=== PATIENT | male | born 1970 | race Caucasian/White ===

== ENCOUNTER 2021-06-27 11:37 | Inpatient (IN) | payer MEDICARE, MEDICAID, SELFPAY ==
--- NOTE | ~2021-06-27 | CT_ITS ---
EXAMINATION: CT abdomen pelvis w con DATE: 06/27/2021 13:29 INDICATION: Nausea and vomiting. Leukocytosis. Diarrhea. COVID-19 positive. TECHNIQUE: Computed tomography (CT) of the abdomen and pelvis was performed without intravenous contr ast. Automated exposure control and iterative reconstruction technique were employed. The dose-length product was 538.33 mGy-cm. COMPARISON: Chest radiograph 06/27/2021 FINDINGS: The visualized portions of the lung bases demonstrate patchy airspace and groundglass opaci ties in the lower lobes, right middle lobe, and lingula. No pleural effusion. The heart size is pedrito l. No pericardial effusion. There is mild bilateral gynecomastia. The liver demonstrates focal steato sis adjacent to ligamentum teres. There is a 1.7 cm low-attenuation mass in the spleen. The gallbladd er is normal in size. There is an 8 mm polyp in the gallbladder. The pancreas, adrenal glands, and ki dneys are normal. The bladder is distended. The prostate is mildly enlarged. There are no dilated loo ps of bowel. The appendix is normal. There are no pathologically enlarged lymph nodes. There is no fr ee intraperitoneal fluid. There is a 9 mm nonaggressive lytic lesion in left ilium, likely benign. Th ere is mild thoracic spondylosis. There is a benign bone island in T8 vertebral body. IMPRESSION: 1. Diffuse lung disease, consistent with COVID-19 pneumonia. 2. 1.7 cm splenic mass, which may be benign or less likely malignant. Abdomen MRI without and with co ntrast is recommended in 6 months. 3. 8 mm gallbladder polyp. The differential diagnosis includes benign polyp, adenoma, and less likely small cancer. Ultrasound is recommended in one year. Reviewed, dictated and finalized at location B. [facility] IMPRESSION: 1. Diffuse lung disease, consistent with COVID-19 pneumonia. 2. 1.7 cm splenic mass, which may be benign or less likely malignant. Abdomen M RI without and with contrast is recommended in 6 months. 3. 8 mm gallbladder polyp. The differential diagnosis includes benign polyp, ad enoma, and less likely small cancer. Ultrasound is recommended in one year.
--- NOTE | ~2021-06-27 | XR_ITS ---
EXAMINATION: XR chest 1V portable EXAM DATE: 06/27/2021 13:14 INDICATION: COVID +, leukocytosis . TECHNIQUE: Portable AP frontal chest x-ray was obtained. There is no prior study for comparison. FINDINGS: There is subsegmental somewhat confluent right upper lobe airspace disease, other less well -defined bilateral airspace disease. Could be viral and/or bacterial pneumonia. There is no pneumotho rax suspected. There are no pleural effusions. Cardiomediastinal silhouette is normal. IMPRESSION: Bilateral ill-defined pneumonia with right upper lobe subsegmental confluence. Reviewed, dictated and finalized at location A. 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
[2021-06-27 11:42] VITALS: BP 109/72; PULSE 103; RESP 20; TEMP 37.1; O2SAT 95
[2021-06-27 11:58] LABS: Basophils Absolute Auto 0.1 K/mm3 (0.0-0.1); Basophils Percent Auto 0.5 % (0.2-1.2); Eosinophils Absolute Auto 0.1 K/mm3 (0-0.3); Eosinophils Percent Auto 0.5 % (0-4.4); Hemoglobin 15.9 g/dL (14.0-18.0); Immature Granulocyte Absolute 0.33 K/mm3 (0.00-0.031); Immature Granulocyte Percent A 1.9 % (0-0.5); Lymphocytes Absolute Auto 0.91 K/mm3 (0.9-3.2); Lymphocytes Percent Auto 5.3 % (18.3-44.2); Mean Corpuscular HGB Conc 34.6 g/dl (32-36); Mean Corpuscular Hemoglobin 28.8 pg (26-34); Mean Corpuscular Volume 83.2 fl (80-100); Mean Platelet Volume 10.3 fl (7.4-10.4); Monocytes Percent Auto 5.9 % (2.6-8.5); Neutrophils Absolute Auto 14.7 K/mm3 (1.3-6.7); Neutrophils Percent Auto 85.9 % (45.5-73.1); Platelet Count Result 442 k/mm3 (150-375); Red Blood Count 5.53 M/mm3 (4.6-6.20); Red Cell Distribution Width 12.2 % (11.5-14.5); White Blood Count 17.1 K/mm3 (4.5-10.0)
[2021-06-27 12:11] LABS: Alanine Aminotransferase 23 U/L (4-50); Albumin Level 3.6 g/dL (3.5-5.1); Alkaline Phosphatase 78 U/L (38-126); Anion Gap 7 mmol/L (8-16); Aspartate Amino Transferase 27 U/L (17-59); Blood Urea Nitrogen 24 mg/dL (9-20); Calcium 8.6 mg/dL (8.4-10.2); Carbon Dioxide 36 mmol/L (22-30); Chloride 90 mmol/L (98-107); Estimated CRCL calculation 110 ml/min; Estimated Glomerular Filt Rate > 60; Glucose 246 mg/dL (65-110); Lipase 111 U/L (23-300); Potassium 3.7 mmol/L (3.4-5.0); Sodium 133 mmol/L (137-145)
--- NOTE | 2021-06-27 12:54 | ED.NAVMDI ---
HPI - Nausea/Vomiting/Diarrhea General Chief complaint: Nausea/Vomiting/Diarrhea <Hilary Manrique PA-C - Last Filed: 06/27/21 16:05> Stated complaint: N/V/D COVID + <Hilary Manrique PA-C - Last Filed: 06/27/21 16:05> Time Seen by Provider: 06/27/21 11:58 <JEB Cummins Last Filed: 06/27/21 16:05> Source: patient <JEB Cummins Last Filed: 06/27/21 16:05> Mode of arrival: EMS <JEB Cummins Last Filed: 06/27/21 16:05> Limitations: other (Poor historian) <JEB Cummins Last Filed: 06/27/21 16:05> History of Present Illness HPI Narrative: This is a 50-year-old male that presents to the emergency department for nausea, vomiting and diarrhea ongoing over the last couple of days. Patient recently tested positive for coronavirus on the of this month per EMS. Had been admitted to facility for rehab due to this. Does report he has had the Covid vaccine. Reports some abdominal pain. Denies fever, chest pain or shortness of breath. <Hilary Manrique PA-C - Last Filed: 06/27/21 16:05> Related Data Allergies/Adverse reactions: Allergies Allergy/AdvReac Type Severity Reaction Status Date / Time No Known Allergies Allergy Verified 06/27/21 12:34 <JEB Cummins Last Filed: 06/27/21 16:05> Review of Systems Review of Systems: CONSTITUTIONAL: Denies fever CARDIOVASCULAR: Denies chest pain, or edema. RESPIRATORY: Denies cough or dyspnea. GASTROINTESTINAL: Reports abdominal pain, nausea, vomiting, and diarrhea. GENITOURINARY: Denies dysuria <JEB Cummins Last Filed: 06/27/21 16:05> All systems reviewed & are unremarkable except as noted in HPI and below <JEB Cummins Last Filed: 06/27/21 16:05> FOR[facility]LY [facility] Past Medical History Medical History: Medical History (Updated 06/27/21 @ 15:33 by Hilary Manrique PA-C) History of diabetes mellitus History of schizophrenia Legally blind <Hilary Manrique PA-C - Last Filed: 06/27/21 16:05> Social History Social History: Social History (Updated 06/27/21 @ 12:55 by Hilary Manrique PA-C) Substance use: never <Hilary Manrique PA-C - Last Filed: 06/27/21 16:05> Exam Narrative: GENERAL: Disheveled, well-nourished, and in no acute distress. HEAD: Normocephalic, atraumatic. ENT: Nares clear, no rhinorrhea or epistaxis. Mucous membranes dry. Oropharynx without tonsillar hypertrophy exudate or other lesions. NECK: Supple. No adenopathy or masses. CHEST: Clear to auscultation. No respiratory distress. No wheezes rales or rhonchi HEART: Regular rate and rhythm. No murmur heard. Normal peripheral pulses. ABDOMEN: Distended bladder. Mild tenderness to palpation throughout the abdomen, without guarding. Normal active bowel sounds. EXTREMITIES: Normal range of motion. No edema. SKIN: Warm, dry, no rash. NEURO: No focal deficits. Alert and oriented x3. PSYCH: Normal mood and affect <Hilary Manrique PA-C - Last Filed: 06/27/21 16:05> Course BIOSTATISTICS MANAGER/PA Physician Supervision For this encounter, I have reviewed the PA documentation, treatment plan and medical decision making: And I have had [id number] time with the patient. This with patient need for admission all questions were answered patient in agreement at this time <Phil Horvath DO - Last Filed: 06/27/21 16:03> Consultations Consultation #1: With hospitalist about patient and work-up who accepts admission <Hilary Manrique PA-C - Last Filed: 06/27/21 16:05> Date: 06/27/21 <Hilary Manrique PA-C - Last Filed: 06/27/21 16:05> Time: 15:35 <Hilary Manrique PA-C - Last Filed: 06/27/21 16:05> Vital Signs Vital signs: Vital Signs Temperature 98.7 F 06/27/21 11:42 Pulse Rate 103 H 06/27/21 11:42 Respiratory Rate 20 06/27/21 11:42 Blood Pressure 109/72 06/27/21 11:42 Pulse Oximetry 95 06/27/21 11:42 Temperature 98.7 F 06/27/21 11:42 Pulse Rate 96
[2021-06-27] MEDS: SODIUM CHLORIDE 0.9% IV 1,000 ML 999 ML IV CONT (13:29)
[2021-06-27] MEDS: ONDANSETRON INJ 4 MG/2 ML VIAL IV PUSH (13:31)
[2021-06-27 14:32] LABS: Add Urine Microscopic? YES; Appearance Urine Clear (Clear); Bilirubin Urine Negative (Negative); Blood Urine Negative (Negative); Color Urine Yellow (Yellow); Glucose Urine UA 3+ mg/dL (Negative); Ketones Urine Trace mg/dL (Negative); Leukocyte Esterase Ur Negative LEU/UL (Negative); Mucus Urine Rare /lpf; Nitrate Urine Negative (Negative); Protein Urine 2+ mg/dL (Negative); RBC Urine 0-2 /hpf (0-2); WBC Urine 0-3 /hpf
[2021-06-27 14:35] LABS: Lactic Acid Reflex 1.4 mmol/L (0.7-2.1)
[2021-06-27 14:45] LABS: Specific Grav Ur 1.033 (1.001-1.035)
[2021-06-27 15:05] VITALS: BP 104/71; PULSE 96; RESP 20; O2SAT 97
[2021-06-27 16:53] VITALS: BP 106/65; PULSE 89; RESP 18; O2SAT 99
[2021-06-27 20:45] VITALS: BP 131/84; PULSE 107; RESP 18; TEMP 36.3; O2SAT 90; BMI 23.1
[2021-06-27 20:59] VITALS: O2SAT 98
--- NOTE | 2021-06-27 21:14 | PM.IMHP ---
H&P: HPI History of Present Illness Date/Time: 06/27/21 21:14 this is a 50-year-old male patient who has a history of schizophrenia. The patient tells me that he lives in [place] in a nursing home typically but is currently in a rehab facility because he was positive for COVID. The patient came in with nausea vomiting and diarrhea that has been occurring for the last couple days. The patient has tested positive for COVID-19 on the of this month. Patient reported that he did have the COVID vaccine. The patient denies any fever chills any pain or shortness of breath. His white count is 17.1. Platelets 442. Sodium 133. Carbon dioxide 36. Glucose is 246. Lactic is 1.4. His COVID testing was repeated. Abdominal pelvis CT was read as the following 1. Diffuse lung disease, consistent with COVID-19 pneumonia. 2. 1.7 cm splenic mass, which may be benign or less likely malignant. Abdomen MRI without and with contrast is recommended in 6 months. 3. 8 mm gallbladder polyp. The differential diagnosis includes benign polyp, adenoma, and less likely small cancer. Ultrasound is recommended in one year. The patient was started azithromycin Rocephin. Patient is on room air. The patient had some urinary retention and a Riggins catheter was placed as well. ER felt that the patient had a secondary bacterial infection. The patient is being admitted to observation status on the date of service of 06/27/2021. Chief Complaint: diarrhea covid positive Review of Systems Review of Systems: ROS unobtainable: Yes unobtainable due to mental status (The patient is answering some questions but is inappropriate at times) [facility] Past Medical History Medical History (Updated 06/27/21 @ 21:21 by Silvana Logan NP) History of diabetes mellitus History of schizophrenia Legally blind Surgical History Surgical History (Updated 06/27/21 @ 21:21 by Silvana Logan NP) No significant past surgical history Family History Family History (Updated 06/27/21 @ 21:21 by Silvana Logan NP) Unknown Unknown family medical history Social History Social History (Updated 06/27/21 @ 21:22 by Silvana Logan NP) Social History: The patient tells me that he is from a nursing home in [place]. He is currently in a rehab facility. The patient is single and does not have any children. The patient stated that his sister is the durable power assistant county attorney for healthcare. Patient states that he is a lifelong nonsmoker does not use any alcohol marijuana or illicit drugs. Code status full code Substance use: never Meds Home Medications and Allergies Allergies Allergy/AdvReac Type Severity Reaction Status Date / Time No Known Allergies Allergy Verified 06/27/21 12:34 Vital Signs Vital Signs - 24 hr 06/27/21 11:42 06/27/21 15:05 06/27/21 16:53 Temperature 37.1 C Pulse Rate 103 H 96 89 Respiratory Rate 20 20 18 Blood Pressure 109/72 104/71 106/65 Pulse Oximetry 95 97 99 06/27/21 20:59 Temperature Pulse Rate Respiratory Rate Blood Pressure Pulse Oximetry 98 Exam Const: General: cooperative, healthy appearing, comfortable, no acute distress, well developed, alert, awake and Physically active Nutritional Appearance: thin Orientation/consciousness: oriented to person and oriented to place HENMT: Head: normal to inspection, No palpable skull fracture present, normocephalic and atraumatic Ears: hearing grossly normal bilaterally and external ears normal General nose exam: Normal external nose present Eyes: General: appearance normal, both eyes and all related structures EOM: EOMs intact bilaterally Other: The patient stated that he is legally blind. The patient could not see my fingers 2 inches in front of his face. Neck: Neck: normal visual inspection and full ROM Chest: Chest palpation & inspection: normal inspection of the chest Resp: Effort & Inspection: normal respiratory effort Auscultation: wheezes Percussion: p
[2021-06-27 22:30] VITALS: BMI 23.1
[2021-06-28] VITALS: BP 103/51; PULSE 97; RESP 18; TEMP 36.3; O2SAT 96
--- NOTE | 2021-06-28 02:23 | PC.NURSE ---
This patient, Missael Brothers, was admitted to 3 [facility] Surg Room 304-01. Patient/family oriented to hospital policies and general routines including ID bracelet, bed and alarms, visiting hours, pain management, procedures, bathroom and other care routines, personal items, smoking policy, room service/diet, and visiting hours. Information on how to activate the Rapid Response Team has been discussed. Patient/Family are encouraged to report perceived risks to care and to ask questions if they do not understand what they are told or what they should do.
[2021-06-28 04:00] VITALS: BP 115/72; PULSE 90; RESP 18; TEMP 36.2; O2SAT 95
[2021-06-28 06:28] LABS: Basophils Absolute Auto 0.1 K/mm3 (0.0-0.1); Basophils Percent Auto 0.6 % (0.2-1.2); Eosinophils Absolute Auto 0.3 K/mm3 (0-0.3); Eosinophils Percent Auto 2.1 % (0-4.4); Hematocrit 39.8 % (42.0-52.0); Hemoglobin 13.8 g/dL (14.0-18.0); Immature Granulocyte Absolute 0.53 K/mm3 (0.00-0.031); Immature Granulocyte Percent A 4.2 % (0-0.5); Lymphocytes Absolute Auto 1.77 K/mm3 (0.9-3.2); Lymphocytes Percent Auto 14.1 % (18.3-44.2); Mean Corpuscular HGB Conc 34.7 g/dl (32-36); Mean Corpuscular Hemoglobin 28.8 pg (26-34); Mean Corpuscular Volume 82.9 fl (80-100); Mean Platelet Volume 10.1 fl (7.4-10.4); Monocytes Absolute Auto 1.2 K/mm3 (0.1-0.6); Monocytes Percent Auto 9.3 % (2.6-8.5); Neutrophils Absolute Auto 8.7 K/mm3 (1.3-6.7); Neutrophils Percent Auto 69.7 % (45.5-73.1); Platelet Count Result 392 k/mm3 (150-375); Red Cell Distribution Width 11.9 % (11.5-14.5); White Blood Count 12.6 K/mm3 (4.5-10.0)
[2021-06-28 06:31] LABS: Lactate Dehydrogenase 517 U/L (313-618); Lactic Acid Reflex 1.2 mmol/L (0.7-2.1); Magnesium 2.1 mg/dL (1.6-2.3)
[2021-06-28 06:38] LABS: Hemoglobin A1C 7.5 % (<5.7)
[2021-06-28 07:13] LABS: Anion Gap 5 mmol/L (8-16); Blood Urea Nitrogen 17 mg/dL (9-20); Carbon Dioxide 34 mmol/L (22-30); Chloride 92 mmol/L (98-107); Estimated CRCL calculation 130 ml/min; Estimated Glomerular Filt Rate > 60; Glucose 210 mg/dL (65-110); Potassium 3.4 mmol/L (3.4-5.0); Sodium 131 mmol/L (137-145)
[2021-06-28 08:00] VITALS: BP 125/71; PULSE 86; RESP 20; TEMP 36.2; O2SAT 95; O2SAT 96
[2021-06-28] MEDS: ENOXAPARIN 40 MG/0.4 ML SYRINGE SUB-Q (08:16)
[2021-06-28 08:33] LABS: Glucose Point of Care 180 mg/dl (65-105)
--- NOTE | 2021-06-28 10:47 | WPDURCON ---
Assessment and Plan Assessment and plan (1) Acute urinary retention: Code(s): R33.8 - Other retention of urine Status: Acute Assessment and Plan: 50 yo male with DM, COVID pneumonia, blindness with acute urinary retention #1 retention likely multifactorial due to acute illness and debility. - recommend continue hollins catheter drainage, limit narcotics, anticholinergics and sedatives. -start flomax 0.4 mg daily voiding trial when more mobile and conditioning has improved Thank you for the consultation, of questions or concerns arise please don't hesitate to contact me. (2) COVID-19: Code(s): U07.1 - COVID-19 Status: Acute Urology Consult Note HPI Date Seen: 06/28/21 Requesting Physician: Magi Jane PA-C Primary Care Provider: Herber Maher MD Consult Narrative Narrative: Missael Brothers is a 50 yo gentleman with multiple medical problems admitted with covid pneumonia. 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 He denies hematuria, dysuria, UTI. No hx of stone disease or family hx of malignancy. Catheter was placed which relieved his urinary retention. he feels comfortable with it in. Review of Systems Constitutional: Constitutional: Reports no additional constitutional complaints, Denies fever(s), Denies snoring and Denies weakness Eyes: Eyes: Reports no additional eye complaints ENT: Reports system reviewed and no additional complaints, except as documented, Denies dysphagia, Denies dizziness, Denies dry mouth and Denies ear discharge Respiratory: Respiratory: Reports as per HPI, Reports cough, Denies hemoptysis, Denies snoring and Denies wheezing Gastrointestinal: Gastrointestinal: Reports as per HPI, Reports no additional gastrointestinal complaints, Denies dysphagia, Denies loose stools and Denies nausea Genitourinary: Genitourinary: Reports no additional male genitourinary complaints and Reports as per HPI Musculoskeletal: Musculoskeletal: Reports no additional musculoskeletal complaints and Reports as per HPI Integumentary/Breasts: Skin/Breast: Reports system reviewed and no additional complaints, except as docu and Reports as per HPI Neurologic: Reports system reviewed and no additional complaints, except as documented, Reports as per HPI, Denies confusion, Denies dizziness, Denies memory loss and Denies weakness Psychiatric: Psychiatric: Reports no additional psychiatric complaints, Reports as per HPI, Denies confusion, Denies memory loss and Denies mood swings Endocrine: Endocrine: Reports no additional endocrine complaints Hematologic/Lymphatic: Hematologic/Lymphatic: Reports no additional hematologic/lymphatic complaints and Reports as per HPI Allergic/Immunologic: Allergic/Immunologic: Reports no additional allergic/immunologic complaints, Reports as per HPI and Denies wheezing PMFSH Past Medical History Medical History (Updated 06/27/21 @ 21:21 by Silvana Logan NP) History of diabetes mellitus History of schizophrenia Legally blind Surgical History Surgical History (Updated 06/27/21 @ 21:21 by Silvana Logan NP) No significant past surgical history Family History Family History (Updated 06/27/21 @ 21:21 by Silvana Logan NP) Unknown Unknown family medical history Social History Social History (Updated 06/27/21 @ 21:22 by Silvana Logan NP) Social History: The patient tells me that he is from [place] [facility] [place]. He is currently in a rehab facility. The patient is single and does not have any children. The patient stated that his sister is the durable power commercial attorney for healthcare. Patient states that he is a lifelong nonsmoker does not use any alcohol marijuana or illicit drugs. Code status full code Smoking status: Never smoker Alcohol intake: never Substance use: never Substance use type: does not use Spiritual care concerns: No Meds Home
[2021-06-28 10:54] LABS: Ferritin > 2000.00 ng/mL (17.9-464)
[2021-06-28 12:00] VITALS: BP 117/79; PULSE 87; RESP 20; TEMP 36.6; O2SAT 95
[2021-06-28] MEDS: INSULIN ASPART (*BKC) 100 UNITS/ML SUB-Q (12:28)
[2021-06-28 12:43] LABS: Glucose Point of Care 239 mg/dl (65-105)
--- NOTE | 2021-06-28 13:52 | PM.IMPN ---
Progress Note: A&P Assessment and Plan (1) COVID-19: Code(s): U07.1 - COVID-19 Status: Acute Assessment and Plan: Noted per previous provider to have positive COVID test on 06/20/2021 at his skilled nursing facility. Confirmatory COVID test at this facility 06/27/2021 is pending. CXR on presentation shows bilateral ill-defined pneumonia and CT shows diffuse lung disease consistent with COVID 19 pneumonia. Continue isolation precautions while awaiting results He is maintaining adequate oxygen saturations on room air. Not a candidate for dexamethasone or remdesivir at this time given lack of oxygen requirements Supportive care to include bronchodilators, expectorants, antipyretics, incentive spirometry Supplemental O2 as needed with goal saturation 92% or above (2) Pneumonia: Qualifiers: Laterality: right Lung location: upper lobe of lung Pneumonia type: due to unspecified organism Qualified Code(s): J18.9 - Pneumonia, unspecified organism Code(s): J18.9 - Pneumonia, unspecified organism Status: Acute Assessment and Plan: Bilateral pneumonia on CXR, most likely to be consistent with COVID-19 pneumonia, especially with reported positive COVID test at facility. He did have mild leukocytosis on presentation which has quickly improved. He is afebrile. There was reportedly some concerns for secondary bacterial pneumonia, though at this time symptoms appear to be consistent with viral pneumonia. He was empirically started on ceftriaxone and azithromycin. Will continue at this time while awaiting results of COVID-19 test. Discontinue if COVID positive. (3) Acute urinary retention: Code(s): R33.8 - Other retention of urine Status: Acute Assessment and Plan: Issues with acute urinary retention on presentation and Riggins catheter was initiated. He has been seen in consultation by Urology. Continue with Riggins catheter. He has been started on Flomax. Will plan for voiding trial in the next couple days (4) Splenic mass: Code(s): R16.1 - Splenomegaly, not elsewhere classified Status: Acute Assessment and Plan: CT abdomen/pelvis showed incidental 1.7 cm low-attenuation splenic mass, which may be benign, less likely malignant. Recommended abdominal MRI without and with contrast in 6 months for further monitoring. This was ordered on admission, however MRI will not be completed today due to the holiday, therefore I will cancel this and proceed with 6 month follow-up as recommended per Radiology. (5) Polyp of gallbladder: Code(s): K82.4 - Cholesterolosis of gallbladder Status: Acute Assessment and Plan: CT abdomen/pelvis also with incidental 8 mm gallbladder polyp. Differential includes benign polyp, adenoma, less likely small cancer. Recommend repeat ultrasound for monitoring in 1 year. He will need to follow-up with primary care provider. (6) Diabetes mellitus: Code(s): E11.9 - Type 2 diabetes mellitus without complications Status: Acute Assessment and Plan: A1c is 7.5. Blood sugars today ranging 180-239. Continue Accu-Cheks, sliding scale insulin, hypoglycemic protocol. Increase sliding scale to moderate dose. He does not appear to be on any hypoglycemic agents at home and will need to consider addition of metformin upon discharge. Subjective Date/time seen: 06/28/21 13:52 Interval history: Date of service: 06/28/2021 Missael Brothers is a 50-year-old male with a history of diabetes mellitus, schizophrenia, and is legally blind who is seen in follow-up for COVID-19 pneumonia. He is feeling pretty well today. He does endorse occasional nonproductive cough. Denies shortness of breath. No chest pain. He endorses anosmia and dysgeusia. He is eating well. No bowel movements today. No issues with his Riggins catheter. Denies fever, chills, nausea, or vomiting. No abdominal pain. Rev
[2021-06-28 15:23] LABS: SARS-CoV-2 RNA PCR Positive
[2021-06-28 16:00] VITALS: BP 115/70; PULSE 87; RESP 18; TEMP 36.7; O2SAT 96
[2021-06-28 17:31] LABS: Glucose Point of Care 195 mg/dl (65-105)
[2021-06-28 20:48] VITALS: BP 124/75; PULSE 98; RESP 18; TEMP 36.9; O2SAT 93
[2021-06-28 22:11] LABS: Glucose Point of Care 244 mg/dl (65-105)
[2021-06-29] VITALS (7 sets, daily range): BP systolic 103–124; BP diastolic 60–78; PULSE 87–100; RESP 14–20; TEMP 36.1–36.8; O2SAT 92–95
[2021-06-29 06:54] LABS: Hematocrit 38.7 % (42.0-52.0); Hemoglobin 13.7 g/dL (14.0-18.0); Mean Corpuscular HGB Conc 35.4 g/dl (32-36); Mean Corpuscular Hemoglobin 28.4 pg (26-34); Mean Corpuscular Volume 80.1 fl (80-100); Mean Platelet Volume 10.2 fl (7.4-10.4); Platelet Count Result 410 k/mm3 (150-375); Red Blood Count 4.83 M/mm3 (4.6-6.20); Red Cell Distribution Width 11.7 % (11.5-14.5); White Blood Count 10.9 K/mm3 (4.5-10.0)
[2021-06-29 07:15] LABS: Alanine Aminotransferase 15 U/L (4-50); Albumin Level 3.4 g/dL (3.5-5.1); Alkaline Phosphatase 69 U/L (38-126); Anion Gap 6 mmol/L (8-16); Aspartate Amino Transferase 19 U/L (17-59); Bilirubin,Total 0.9 mg/dL (0.2-1.3); Blood Urea Nitrogen 12 mg/dL (9-20); Calcium 8.2 mg/dL (8.4-10.2); Carbon Dioxide 28 mmol/L (22-30); Chloride 93 mmol/L (98-107); Estimated CRCL calculation 158 ml/min; Estimated Glomerular Filt Rate > 60; Glucose 233 mg/dL (65-110); Potassium 3.5 mmol/L (3.4-5.0); Sodium 127 mmol/L (137-145)
[2021-06-29 07:31] LABS: CRP 15.2 mg/dL (<1.0)
[2021-06-29 08:41] LABS: Glucose Point of Care 229 mg/dl (65-105)
[2021-06-29] MEDS: INSULIN ASPART (*BKC) 100 UNITS/ML SUB-Q ×2 (09:29→17:54)
[2021-06-29] MEDS: ENOXAPARIN 40 MG/0.4 ML SYRINGE SUB-Q (09:29)
[2021-06-29] MEDS: TAMSULOSIN HCL 0.4 MG CAPSULE PO (09:29)
[2021-06-29 11:38] LABS: Glucose Point of Care 180 mg/dl (65-105)
[2021-06-29 13:28] LABS: Sodium Urine Random 86 meq/L
[2021-06-29 13:45] LABS: Sodium 131 mmol/L (137-145)
--- NOTE | 2021-06-29 13:55 | PM.IMPN ---
Progress Note: A&P Assessment and Plan (1) COVID-19: Code(s): U07.1 - COVID-19 Status: Acute Assessment and Plan: Noted per previous provider to have positive COVID test on 06/20/2021 at his care home facility. Confirmatory COVID test at this facility 06/27/2021 also positive. CXR on presentation shows bilateral ill-defined pneumonia and CT shows diffuse lung disease consistent with COVID 19 pneumonia. Continue isolation precautions while awaiting results He is maintaining adequate oxygen saturations on room air. Not a candidate for dexamethasone or remdesivir at this time given lack of oxygen requirements Supportive care to include bronchodilators, expectorants, antipyretics, incentive spirometry Supplemental O2 as needed with goal saturation 92% or above Completed [facility] vaccination November 2020 (2) Pneumonia: Qualifiers: Laterality: right Lung location: upper lobe of lung Pneumonia type: due to unspecified organism Qualified Code(s): J18.9 - Pneumonia, unspecified organism Code(s): J18.9 - Pneumonia, unspecified organism Status: Acute Assessment and Plan: Bilateral pneumonia on CXR secondary to COVID-19 pneumonia. He did have mild leukocytosis on presentation which has resolved. He is afebrile. There was reportedly some concerns for secondary bacterial pneumonia on admission, though clinical picture most consistent with viral pneumonia. He was empirically started on ceftriaxone and azithromycin for antibacterial coverage, discontinued today given viral etiology. (3) Acute urinary retention: Code(s): R33.8 - Other retention of urine Status: Acute Assessment and Plan: Issues with acute urinary retention on presentation and Riggins catheter was initiated. He has been seen in consultation by Urology. He has been started on Flomax. Will plan for voiding trial tomorrow. (4) Splenic mass: Code(s): R16.1 - Splenomegaly, not elsewhere classified Status: Acute Assessment and Plan: CT abdomen/pelvis showed incidental 1.7 cm low-attenuation splenic mass, which may be benign, less likely malignant. Recommended abdominal MRI without and with contrast in 6 months for further monitoring. Follow-up with PCP. (5) Polyp of gallbladder: Code(s): K82.4 - Cholesterolosis of gallbladder Status: Acute Assessment and Plan: CT abdomen/pelvis also with incidental 8 mm gallbladder polyp. Differential includes benign polyp, adenoma, less likely small cancer. Recommend repeat ultrasound for monitoring in 1 year. He will need to follow-up with primary care provider. (6) Diabetes mellitus: Code(s): E11.9 - Type 2 diabetes mellitus without complications Status: Acute Assessment and Plan: A1c is 7.5. Blood sugars today ranging 180-230. Continue Accu-Cheks, sliding scale insulin, hypoglycemic protocol. He does not appear to be on any hypoglycemic agents at home and will need to consider addition of metformin upon discharge. (7) Hyponatremia: Code(s): E87.1 - Hypo-osmolality and hyponatremia Status: Acute Assessment and Plan: Sodium slightly decreased today at 127, possibly related to excess fluid intake. Improvement in sodium this afternoon with fluid restriction diet. Sodium up to 131. Continue with 1800 cc fluid restriction and repeat sodium levels this evening. Subjective Date/time seen: 06/29/21 13:55 Interval history: Date of service: 06/29/2021 Missael Brothers is a 50-year-old male with a history of diabetes mellitus, schizophrenia, and is legally blind who is seen in follow-up for COVID-19 pneumonia. Overall doing well today. He offers no complaints. No issues with his Riggins catheter. He said he did not eat much breakfast today because he did not like it. Denies shortness of breath, cough, chest pain. No fevers, chills, nausea, vomiting, dizziness, lighth
[2021-06-29 16:45] LABS: Glucose Point of Care 231 mg/dl (65-105)
[2021-06-29 22:35] LABS: Sodium 128 mmol/L (137-145)
[2021-06-29 23:52] LABS: Glucose Point of Care 267 mg/dl (65-105)
[2021-06-30] VITALS (7 sets, daily range): BP systolic 106–123; BP diastolic 68–76; PULSE 92–99; RESP 16–18; TEMP 36.1–36.8; O2SAT 94–97
[2021-06-30 06:44] LABS: Hematocrit 38.5 % (42.0-52.0); Hemoglobin 13.4 g/dL (14.0-18.0); Mean Corpuscular HGB Conc 34.8 g/dl (32-36); Mean Corpuscular Hemoglobin 28.5 pg (26-34); Mean Corpuscular Volume 81.7 fl (80-100); Mean Platelet Volume 10.2 fl (7.4-10.4); Platelet Count Result 410 k/mm3 (150-375); Red Blood Count 4.71 M/mm3 (4.6-6.20); Red Cell Distribution Width 11.9 % (11.5-14.5); White Blood Count 11.1 K/mm3 (4.5-10.0)
[2021-06-30 07:01] LABS: Anion Gap 6 mmol/L (8-16); Blood Urea Nitrogen 11 mg/dL (9-20); Calcium 8.6 mg/dL (8.4-10.2); Carbon Dioxide 30 mmol/L (22-30); Chloride 97 mmol/L (98-107); Estimated CRCL calculation 130 ml/min; Estimated Glomerular Filt Rate > 60; Glucose 218 mg/dL (65-110); Potassium 3.8 mmol/L (3.4-5.0); Sodium 133 mmol/L (137-145)
[2021-06-30 08:15] LABS: Glucose Point of Care 201 mg/dl (65-105)
[2021-06-30] MEDS: TAMSULOSIN HCL 0.4 MG CAPSULE PO (08:20)
[2021-06-30] MEDS: ENOXAPARIN 40 MG/0.4 ML SYRINGE SUB-Q (08:20)
[2021-06-30] MEDS: INSULIN ASPART (*BKC) 100 UNITS/ML SUB-Q ×2 (08:21→17:33)
[2021-06-30 11:54] LABS: Glucose Point of Care 197 mg/dl (65-105)
--- NOTE | 2021-06-30 14:21 | PM.IMPN ---
Progress Note: A&P Assessment and Plan (1) COVID-19: Code(s): U07.1 - COVID-19 Status: Acute Assessment and Plan: Noted per previous provider to have positive COVID test on 06/20/2021 at his long-term facility. Confirmatory COVID test at this facility 06/27/2021 also positive. CXR on presentation shows bilateral ill-defined pneumonia and CT shows diffuse lung disease consistent with COVID 19 pneumonia. He is maintaining adequate oxygen saturations on room air. Not a candidate for dexamethasone or remdesivir at this time given lack of oxygen requirements Supportive care to include bronchodilators, expectorants, antipyretics, incentive spirometry Supplemental O2 as needed with goal saturation 92% or above Completed [facility] vaccination November 2020 (2) Pneumonia: Qualifiers: Laterality: right Lung location: upper lobe of lung Pneumonia type: due to unspecified organism Qualified Code(s): J18.9 - Pneumonia, unspecified organism Code(s): J18.9 - Pneumonia, unspecified organism Status: Acute Assessment and Plan: Bilateral pneumonia on CXR secondary to COVID-19 pneumonia. He does have mild leukocytosis.. He is afebrile. There was reportedly some concerns for secondary bacterial pneumonia on admission, though clinical picture most consistent with viral pneumonia. He was empirically started on ceftriaxone and azithromycin for antibacterial coverage, discontinued 06/29 given viral etiology. (3) Acute urinary retention: Code(s): R33.8 - Other retention of urine Status: Acute Assessment and Plan: Issues with acute urinary retention on presentation and Riggins catheter was initiated. He has been seen in consultation by Urology. He has been started on Flomax. Riggins catheter to be removed today and proceed with voiding trial. (4) Splenic mass: Code(s): R16.1 - Splenomegaly, not elsewhere classified Status: Acute Assessment and Plan: CT abdomen/pelvis showed incidental 1.7 cm low-attenuation splenic mass, which may be benign, less likely malignant. Recommended abdominal MRI without and with contrast in 6 months for further monitoring. Follow-up with PCP. (5) Polyp of gallbladder: Code(s): K82.4 - Cholesterolosis of gallbladder Status: Acute Assessment and Plan: CT abdomen/pelvis also with incidental 8 mm gallbladder polyp. Differential includes benign polyp, adenoma, less likely small cancer. Recommend repeat ultrasound for monitoring in 1 year. He will need to follow-up with primary care provider. (6) Diabetes mellitus: Code(s): E11.9 - Type 2 diabetes mellitus without complications Status: Acute Assessment and Plan: A1c is 7.5. Blood sugars today ranging 180-230. Continue Accu-Cheks, sliding scale insulin, hypoglycemic protocol. He does not appear to be on any hypoglycemic agents at home and will need to consider addition of metformin upon discharge. (7) Hyponatremia: Code(s): E87.1 - Hypo-osmolality and hyponatremia Status: Acute Assessment and Plan: Sodium decreased to 127, most likely related to excess fluid intake. Improvement in sodium with fluid restriction diet. Sodium 133 this morning. Continue with 1800 cc fluid restriction and monitor BMP. Subjective Date/time seen: 06/30/21 14:21 Interval history: Date of service: 06/29/2021 Missael Brothers is a 50-year-old male with a history of diabetes mellitus, schizophrenia, and is legally blind who is seen in follow-up for COVID-19 pneumonia. He is doing well today. Offers no complaints. He is eating breakfast. Denies shortness breath, chest pain, cough, nausea, vomiting, diarrhea, fever, chills. No issues with Riggins catheter. No additional concerns at this time. Review of Systems Review of Systems: All systems reviewed & are unremarkable except as noted in HPI and below Exam Narrativ
[2021-06-30 16:38] LABS: Glucose Point of Care 243 mg/dl (65-105)
[2021-06-30 21:18] LABS: Glucose Point of Care 239 mg/dl (65-105)
[2021-07-01] VITALS: BP 123/77; PULSE 94; RESP 16; TEMP 36.4; O2SAT 95
[2021-07-01 04:00] VITALS: BP 112/70; PULSE 84; RESP 18; TEMP 36.8; O2SAT 93
[2021-07-01 04:53] LABS: IFOB Positive Control Positive; Immunochemical Fecal Occult Bl Negative (N)
[2021-07-01 06:46] LABS: Hematocrit 37.6 % (42.0-52.0); Hemoglobin 13.1 g/dL (14.0-18.0); Mean Corpuscular HGB Conc 34.8 g/dl (32-36); Mean Corpuscular Volume 83.2 fl (80-100); Mean Platelet Volume 10.4 fl (7.4-10.4); Platelet Count Result 468 k/mm3 (150-375); Red Blood Count 4.52 M/mm3 (4.6-6.20); Red Cell Distribution Width 12.1 % (11.5-14.5); White Blood Count 10.5 K/mm3 (4.5-10.0)
[2021-07-01 06:57] LABS: Anion Gap 6 mmol/L (8-16); Blood Urea Nitrogen 12 mg/dL (9-20); Calcium 8.4 mg/dL (8.4-10.2); Carbon Dioxide 29 mmol/L (22-30); Chloride 96 mmol/L (98-107); Estimated CRCL calculation 158 ml/min; Estimated Glomerular Filt Rate > 60; Glucose 231 mg/dL (65-110); Potassium 3.7 mmol/L (3.4-5.0); Sodium 131 mmol/L (137-145)
[2021-07-01 08:00] VITALS: BP 132/90; PULSE 80; RESP 18; TEMP 35.9; O2SAT 97
[2021-07-01] MEDS: TAMSULOSIN HCL 0.4 MG CAPSULE PO (08:30)
[2021-07-01] MEDS: ENOXAPARIN 40 MG/0.4 ML SYRINGE SUB-Q (08:30)
[2021-07-01 08:42] LABS: Glucose Point of Care 193 mg/dl (65-105)
--- NOTE | 2021-07-01 11:39 | WPDUROPN2 ---
Progress Note: A&P Assessment and Plan (1) Acute urinary retention: Code(s): R33.8 - Other retention of urine Status: Acute Assessment and Plan: failed void trial -continue flomax -plan for repeat void trial in office in 1 week ( [facility]), if he fails he may require further evaluation with urodynamic studies and cystoscopy -hollins leg bag teaching Subjective Subjective Date/Time Seen: 07/01/21 11:39 pt unable to void after cath removed. catheter replaced. Review of Systems Review of Systems: All systems reviewed & are unremarkable except as noted in HPI and below Constitutional: Constitutional: Reports no additional constitutional complaints Eyes: Eyes: Reports no additional eye complaints Respiratory: Respiratory: Reports no additional respiratory complaints and Reports cough Musculoskeletal: Musculoskeletal: Reports no additional musculoskeletal complaints Exam Const: General: cooperative, comfortable and no acute distress HENMT: Head: normal to inspection Ears: hearing grossly normal bilaterally Chest: Chest palpation & inspection: normal inspection of the chest Resp: Effort & Inspection: normal respiratory effort and no respiratory distress GI: Inspection: normal to inspection GI Palp: No abdominal tenderness, Yes Soft to palpation, No Tenderness to palpation present (GI) and No Guarding due to palpation present (GI) : Male General Exam: Yes normal external exam Penis: Yes normal penis Urinary Catheter: Urinary Catheter: patent and draining and urine clear Back/Spine/Pelvis: Back: no CVA tenderness Objective Data Vital Signs Vital Signs: Vital Signs - 24 hr 06/30/21 12:37 06/30/21 18:17 06/30/21 20:00 Temperature 36.8 C 36.5 C 36.4 C Pulse Rate 99 94 97 Respiratory Rate 16 16 16 Blood Pressure 109/71 109/69 123/76 Pulse Oximetry 94 94 94 06/30/21 22:59 07/01/21 00:00 07/01/21 04:00 Temperature 36.4 C L 36.8 C Pulse Rate 94 84 Respiratory Rate 16 18 Blood Pressure 123/77 112/70 Pulse Oximetry 94 95 93 07/01/21 08:00 Temperature 35.9 C L Pulse Rate 80 Respiratory Rate 18 Blood Pressure 132/90 Pulse Oximetry 97 Intake/Output Intake/Output: Intake & Output 06/28/21 06/29/21 06/30/21 07/01/21 23:59 23:59 23:59 23:59 Intake Total 3930 1202 560 612 Output Total 1650 1550 1400 600 Balance 9926 -128 -840 12 Meds/Results Medications: Active Medications Generic Name Dose Route Start Last Admin Trade Name Freq PRN Reason Stop Dose Admin Albuterol 2 puff 06/27/21 21:35 Albuterol Sulfate (*Sp) Aerosol 1 Puff INHALATION Q6HRT PRN Shortness Of Breath Dextrose 12.5 gm 06/27/21 21:36 Dextrose 50% 25 Gm/50 Ml Syringe IV PUSH PRN PRN Hypoglycemia Protocol Enoxaparin Sodium 40 mg 06/28/21 09:00 07/01/21 08:30 Enoxaparin 40 Mg/0.4 Ml Syringe SUB-Q 40 mg DAILY MEGHAN Administration Glucagon 1 mg 06/27/21 21:36 Glucagon For Inj 1 Mg Vial IM PRN PRN Hypoglycemia Protocol Glucose 15 gm 06/27/21 21:36 Glucose Oral Gel 15 Gm Of Glucse In 37.5 Gm Tube PO PRN PRN Hypoglycemia Protocol Guaifenesin 600 mg 06/28/21 14:08 Guaifenesin 12 Hr 600 Mg Tabcr PO Q12HR PRN Cough, chest congestion Dextrose 1,000 mls @ 100 mls/hr 06/27/21 21:36 Dextrose 5% 1,000 Ml IVPB PRN PRN Hypoglycemia Protocol Insulin Aspart 3 - 6 units 06/28/21 17:00 07/01/21 08:51 Insulin Aspart (*Bkc) 100 Units/Ml SUB-Q Not Given [facility] Protocol Ondansetron HCl 4 mg 06/27/21 21:19 Ondansetron Inj 4 Mg/2 Ml Vial IV PUSH Q4H PRN Nausea And Vomiting Tamsulosin HCl 0.4 mg 06/29/21 09:00 07/01/21 08:30 Tamsulosin Hcl 0.4 Mg Capsule PO 0.4 mg QAM MEGHAN Administration Radiology Results: ITS Impressions Chest X-Ray 06/27/21 13:21 IMPRESSION: Bilateral ill-defined pneumonia with right upper lobe subsegmental co
--- NOTE | 2021-07-01 15:32 | PM.DS ---
DS: Admitting Diagnosis Discharge Date 07/01/21 Admitting Diagnosis COVID-19 pneumonia, urinary retention DS: Discharge Diagnosis Discharge Diagnosis (1) COVID-19: Code(s): U07.1 - COVID-19 Status: Acute Assessment and Plan: Noted per previous provider to have positive COVID test on 06/20/2021 at his [facility] facility. Confirmatory COVID test at this facility 06/27/2021 also positive. CXR on presentation showed bilateral ill-defined pneumonia and CT shows diffuse lung disease consistent with COVID 19 pneumonia. He maintain adequate oxygen saturations on room air and did not require supplemental oxygen. He was not a candidate for dexamethasone or remdesivir given his lack of oxygen requirements. Supportive care provided including bronchodilators, expectorants, antipyretics, incentive spirometry. He did complete his [employer] vaccine in November 2020. (2) Pneumonia: Qualifiers: Laterality: right Lung location: upper lobe of lung Pneumonia type: due to unspecified organism Qualified Code(s): J18.9 - Pneumonia, unspecified organism Code(s): J18.9 - Pneumonia, unspecified organism Status: Acute Assessment and Plan: Bilateral pneumonia on CXR secondary to COVID-19 pneumonia. He had mild leukocytosis.. He remained afebrile. There was reportedly some concerns for secondary bacterial pneumonia on admission, though clinical picture most consistent with viral pneumonia. He was empirically started on ceftriaxone and azithromycin for antibacterial coverage, discontinued 06/29 given viral etiology. (3) Acute urinary retention: Code(s): R33.8 - Other retention of urine Status: Acute Assessment and Plan: Issues with acute urinary retention on presentation and Riggins catheter was initiated. He was seen in consultation by Urology and started on Flomax. Voiding trial attempted on 06/30/2021, however patient unable to void. Riggins catheter replaced and he will continue with Riggins catheter on discharge. He will need follow-up with Urology in 1 week for voiding trial in the office with likely urodynamic study. Continue Flomax. (4) Splenic mass: Code(s): R16.1 - Splenomegaly, not elsewhere classified Status: Acute Assessment and Plan: CT abdomen/pelvis showed incidental 1.7 cm low-attenuation splenic mass, which may be benign, less likely malignant. Recommended abdominal MRI without and with contrast in 6 months for further monitoring. Follow-up with PCP. Left a message for his PCP at [facility]. (5) Polyp of gallbladder: Code(s): K82.4 - Cholesterolosis of gallbladder Status: Acute Assessment and Plan: CT abdomen/pelvis also with incidental 8 mm gallbladder polyp. Differential includes benign polyp, adenoma, less likely small cancer. Recommend repeat ultrasound for monitoring in 1 year. He will need to follow-up with primary care provider, left a message regarding this as above. (6) Diabetes mellitus: Code(s): E11.9 - Type 2 diabetes mellitus without complications Status: Acute Assessment and Plan: A1c is 7.5. Blood sugars were slightly elevated. He was not on any hypoglycemic agents. Monitored during admission with Accu-Cheks, sliding scale insulin, hypoglycemic protocol. Started on metformin at discharge and instructed to monitor blood sugars at facility with implementation of hypoglycemic protocol. (7) Hyponatremia: Code(s): E87.1 - Hypo-osmolality and hyponatremia Status: Acute Assessment and Plan: Sodium declined, most likely related to excess fluid intake and hyperglycemia. Sodium levels improved with fluid restriction diet. DS: Summary Hospital Course Hospital Course: Date of admission: 06/27/2021 Date of discharge: 07/01/2021 Missael Brothers is a 50-year-old male with a history of diabetes mellitus, schizophrenia, and is legally blind
== END 2021-07-01 12:05 | DRG 177 ==
LOC: ANHED 15:31 → ANH3MEDSUR 19:58
PROVIDERS: Nurse Practitioner; Physician Assistant; Admitting Provider Internal Medicine; Emergency Provider Emergency Medicine; PCP Internal Medicine; Visit Provider Family Medicine
DX: U07.1 COVID-19 (principal); J12.82 Pneumonia due to coronavirus disease 2019; E87.1 Hypo-osmolality and hyponatremia; R33.8 Other retention of urine; R16.1 Splenomegaly, not elsewhere classified; K82.4 Cholesterolosis of gallbladder; E11.9 Type 2 diabetes mellitus without complications; F20.9 Schizophrenia, unspecified; H54.7 Unspecified visual loss; E86.0 Dehydration; Z28.21 Immunization not carried out because of patient refusal
CPT/HCPCS: 36415; 71045; 74177; 80048; 80053; 81001; 82274; 82570; 82728; 82948; 83036; 83605; 83615; 83690; 83735; 84295; 84300; 85025; 85027; 86140; 87015; 87040; 87045; 87177; 87209; 87269; 87272; 87427; 89055; 96361; 96365; 96366; 96367; 96372; 96375; 99285; A9270; C9803; G0378; J0456; J0696; J1650; J1815; J2405; J7030; Q9967; U0003; U0005

== ENCOUNTER 2021-07-05 07:34 | Inpatient (IN) | payer MEDICARE, MEDICAID, SELFPAY ==
[2021-07-05] VITALS (55 sets, daily range): BP systolic 74–107; BP diastolic 41–90; PULSE 80–140; RESP 14–48; TEMP 36.7–38.7; O2SAT 92–100; BMI 23.5
--- NOTE | ~2021-07-05 | XR_ITS ---
XR chest 1V portable 07/05/2021 14:55 Indication: Pneumonia Procedure: AP portable chest Comparison: 06/27/2021 Findings: There is bilateral airspace disease with bandlike opacity in the right mid thorax and patch y left basilar infiltrates. Findings compatible with pneumonia. No significant change. No pleural eff usion or pneumothorax. Impression: 1: Patchy bilateral airspace disease without significant interval change, compatible with pneumonia. Reviewed, dictated and finalized at location B. E VARIATION EQUIPMENT TENDER Impression: 1: Patchy bilateral airspace disease without significant interval change, дмитрий tible with pneumonia.
--- NOTE | ~2021-07-05 | XR_ITS ---
EXAMINATION: XR chest 1V portable DATE: 07/13/2021 06:09 INDICATION: Pneumonia. TECHNIQUE: A single frontal view of the chest was obtained. COMPARISON: Chest single view 07/05/2021, CT abdomen and pelvis 07/05/2021 FINDINGS: There are airspace opacities in the mid and lower lung zones. No pleural effusion or pneumo thorax. The heart size is normal. IMPRESSION: 1. Stable airspace opacities in the mid and lower lung zones, consistent with pneumonia. Reviewed, dictated and finalized at location A. RONMENTAL RESEARCH SCIENTIST IMPRESSION: 1. Stable airspace opacities in the mid and lower lung zones, consistent with p neumonia.
--- NOTE | ~2021-07-05 | CT_ITS ---
EXAMINATION: CT abdomen pelvis w con DATE: 07/05/2021 09:21 INDICATION: Lower abdominal pain TECHNIQUE: Computed tomography (CT) of the abdomen and pelvis was performed with 100 cc Omnipaque 350 intravenous contrast. The dose-length product was 687.26 mGy-cm. Automated exposure control and iter ative reconstruction technique were employed. COMPARISON: CT dated 06/27/2021. FINDINGS: Patchy bilateral airspace disease, consistent with pneumonia. No significant pleural or per icardial effusion. Heart size is normal. The liver, spleen, pancreas, adrenal glands and kidneys are unremarkable. Gallbladder is present. Moderate colonic fecal loading. There is a Riggins catheter prese nt in the bladder. There is dextroscoliosis of the lumbar spine. No acute osseous abnormality. Subtle low density splenic mass reidentified without significant change. There is diffuse bladder wall thic kening with surrounding perivesical fatty infiltration, consistent with cystitis. There is a Riggins ca theter placement. IMPRESSION: 1. Patchy bilateral airspace disease in the mid and lower lungs, compatible with pneumonia. 2: Bladder wall thickening with perivesical fatty infiltration, compatible with cystitis. Riggins paulo ter present. 3: Stable hypovascular splenic mass with indistinct margins. Consider MRI of the abdomen without and with contrast in 6 months. Reviewed, dictated and finalized at location B. ER IMPRESSION: 1. Patchy bilateral airspace disease in the mid and lower lungs, compatible wit h pneumonia. 2: Bladder wall thickening with perivesical fatty infiltration, compatible with cystitis. Riggins catheter present. 3: Stable hypovascular splenic mass with indistinct margins. Consider MRI of t he abdomen without and with contrast in 6 months.
--- NOTE | 2021-07-05 07:46 | ECG_ITS ---
Measurements Intervals [place] Rate: 132 P: 50 WV: 127 QRS: 48 QRSD: 88 T: 72 QT: 332 QTc: 492 Interpretive Statements SINUS TACHYCARDIA MINIMAL Q WAVES- INFERIOR LEADS BORDERLINE T WAVE ABNORMALITY- HIGH LATERAL LEADS BASELINE ARTIFACT- I, II, III, AVR, AVL, AVF, V2-V6 ABNORMAL ECG Electronically Signed On 07-05-2021 15:03:56 [employer] MACHINE OPERATOR by Peter Mujica D.O.
--- NOTE | 2021-07-05 08:10 | ED.ABDPAIN ---
HPI - Abdominal Pain General Chief Complaint: Abdominal Pain Stated Complaint: ABD PAIN/HEMATURIA Time Seen by Provider: 07/05/21 07:47 Source: patient, EMS and RN notes reviewed Limitations: altered mental status History of Present Illness HPI narrative: Patient brought to the emergency room by ambulance from [facility] because of lower abdominal pain, nausea, vomiting, diarrhea, passing blood clots after changing the Riggins catheter, bloody urine. History of diabetes, legally blind, schizophrenia. Patient tested positive for COVID-19 on June 20. Had Riggins catheter roughly for the last 10 days, status post failed trial to void without Riggins catheter. Patient is fully vaccinated for COVID-20 November 2020 Related Data Allergies Allergy/AdvReac Type Severity Reaction Status Date / Time No Known Allergies Allergy Verified 06/27/21 12:34 Review of Systems Review of Systems: ROS unobtainable: Yes unobtainable due to mental status PMFSH Past Medical History Medical History History of diabetes mellitus History of schizophrenia Legally blind Surgical History Surgical History No significant past surgical history Family History Family History Unknown Unknown family medical history Social History Social History Social History: The patient tells me that he is from a prison in [place]. He is currently in a rehab facility. The patient is single and does not have any children. The patient stated that his sister is the durable power patent attorney for healthcare. Patient states that he is a lifelong nonsmoker does not use any alcohol marijuana or illicit drugs. Code status full code Smoking status: Never smoker Alcohol intake: never Substance use: never Substance use type: does not use Spiritual care concerns: No Exam Narrative: General appearance: Well-developed, malnourished, sick looking Skin: Pale Head: Normocephalic, nontraumatic Eyes: Clear conjunctiva ENT: Dry oral cavity Neck: Supple, nontender Chest and respiratory: Airway patent, no respiratory distress, no accessory muscle use Heart: Regular rate/rhythm Abdomen: Soft, nontender, no organomegaly, quiet bowel sounds, Riggins catheter in place, bloody urine in the bag Vascular: Normal peripheral pulses, normal capillary refill. Musculoskeletal: Normal range of motion, nontender back Neurologic: Alert and oriented his name and age only Procedures Arterial Line Arterial line #1: Date of Arterial Line: 07/05/21 Time of Arterial Line: 12:06 Arterial Line Location: femoral and right Discussed with the patient/family/POA, the placement of an arterial catheter, including its clinical necessity/indication and associated potential risks, benefits and alternatives.: Yes Time Out Performed: Yes Size (Gauge): 18 Technique Used: guide wire technique Post-Procedure: line sutured into place and dry sterile dressing placed Patient Tolerated Procedure: well Complications: none Course Course Emergency Course: Improving Consultations Consultation #1: DR HUYNH Date: 07/05/21 Time: 09:38 Consultation #2: DR GUY Date: 07/05/21 Time: 09:38 Vital Signs Vital signs: Vital Signs Temperature 36.7 C 07/05/21 07:38 Pulse Rate 133 H 07/05/21 07:38 Respiratory Rate 24 H 07/05/21 07:38 Blood Pressure 82/49 L 07/05/21 07:38 Pulse Oximetry 98 07/05/21 07:38 Temperature 36.7 C 07/05/21 07:38 Puls
[2021-07-05] MEDS: SODIUM CHLORIDE 0.9% IV 1,000 ML 999 ML IV CONT ×2 (08:23→15:35)
[2021-07-05 08:26] LABS: Basophils Absolute Auto 0.1 K/mm3 (0.0-0.1); Basophils Percent Auto 0.1 % (0.2-1.2); Hematocrit 38.6 % (42.0-52.0); Hemoglobin 13.6 g/dL (14.0-18.0); Immature Granulocyte Absolute 2.65 K/mm3 (0.00-0.031); Lymphocytes Absolute Auto 1.71 K/mm3 (0.9-3.2); Lymphocytes Percent Auto 2.6 % (18.3-44.2); Mean Corpuscular HGB Conc 35.2 g/dl (32-36); Mean Corpuscular Hemoglobin 29.6 pg (26-34); Mean Corpuscular Volume 83.9 fl (80-100); Monocytes Absolute Auto 1.8 K/mm3 (0.1-0.6); Monocytes Percent Auto 2.7 % (2.6-8.5); Neutrophils Absolute Auto 60.5 K/mm3 (1.3-6.7); Neutrophils Percent Auto 90.6 % (45.5-73.1); Platelet Count Result 743 k/mm3 (150-375); Red Cell Distribution Width 12.9 % (11.5-14.5)
[2021-07-05 08:29] LABS: INR 1.2; Prothrombin Time 14.8 Seconds (11.1-14.7)
[2021-07-05 08:30] LABS: Partial Thromboplastin Time 33.8 SECONDS (22.3-36.8)
[2021-07-05 08:38] LABS: Lactic Acid Reflex 5.5 mmol/L (0.7-2.1)
[2021-07-05 08:39] LABS: Add Urine Microscopic? YES; Appearance Urine Turbid (Clear); Bacteria Urine 2+ /hpf; Bilirubin Urine Negative (Negative); Blood Urine 3+ (Negative); Budding Yeast Urine Present /hpf; Calcium Oxalate Crystals Urine Many /hpf; Color Urine Red (Yellow); Glucose Urine UA 2+ mg/dL (Negative); Ketones Urine Negative (Negative); Leukocyte Esterase Ur Trace LEU/UL (Negative); Mucus Urine Heavy /lpf; Nitrate Urine Positive (Negative); Protein Urine 2+ mg/dL (Negative); RBC Urine >75 /hpf (0-2); Specific Grav Ur 1.024 (1.001-1.035); Urobilinogen Urine Negative mg/dL (<2.0); WBC Clumps Urine Present /HPF; WBC Urine >75 /hpf
[2021-07-05 08:43] LABS: Alanine Aminotransferase 38 U/L (4-50); Albumin Level 3.7 g/dL (3.5-5.1); Alkaline Phosphatase 82 U/L (38-126); Anion Gap 14 mmol/L (8-16); Aspartate Amino Transferase 32 U/L (17-59); Bilirubin,Total 0.9 mg/dL (0.2-1.3); Blood Urea Nitrogen 24 mg/dL (9-20); Carbon Dioxide 25 mmol/L (22-30); Chloride 94 mmol/L (98-107); Estimated CRCL calculation 36 ml/min; Estimated Glomerular Filt Rate 36; Glucose 329 mg/dL (65-110); Lipase 44 U/L (23-300); Potassium 4.7 mmol/L (3.4-5.0); Sodium 133 mmol/L (137-145)
[2021-07-05 08:52] LABS: White Blood Count 66.7 K/mm3 (4.5-10.0)
--- NOTE | 2021-07-05 09:03 | PC.NURSE ---
Pt. to ED CT scan
--- NOTE | 2021-07-05 09:06 | PC.NURSE ---
EMS gave 1L of Lactated Ringers and patient received 1L of NS. EDP notified that patient has received 2L of fluids. Bolus order documented not given since patient has received the bolus.
[2021-07-05 09:58] LABS: Lactic Acid Reflex 8.6 mmol/L (0.7-2.1)
--- NOTE | 2021-07-05 10:29 | PC.NURSE ---
La Guaman (sister) [phone]
--- NOTE | 2021-07-05 10:30 | PC.NURSE ---
ERP notified of patient blood pressure being low after initial fluid bolus. ERP ordered 500ml bolus via verbal order readback.
[2021-07-05] MEDS: SODIUM CHLORIDE 0.9% IV 500 ML 999 ML IV CONT ×2 (10:36→10:56)
--- NOTE | 2021-07-05 10:58 | PC.NURSE ---
ERP notified of low blood pressure. ERP ordered additional NS bolus of 500ml via verbal order read back.
[2021-07-05 11:17] LABS: Reflex Lactic Acid Yes or No Add Lactic
--- NOTE | 2021-07-05 11:21 | PC.NURSE ---
ERP notified of BP after additional fluid boluses. ERP aware, no new orders at this time.
[2021-07-05] MEDS: SODIUM CHLORIDE 0.9% IV 1,000 ML 150 ML IV CONT ×2 (12:13→18:10)
[2021-07-05] MEDS: NOREPINEPHRINE 8 MG/D5W 250 ML 8 MG/250 ML BAG 9.38 MG IV CONT (12:28)
--- NOTE | 2021-07-05 13:21 | ADMGEN ---
This patient, Missael Brothers, was admitted to Intensive Care Unit-8. Patient/family oriented to hospital policies and general routines including ID bracelet, bed and alarms, visiting hours, pain management, procedures, bathroom and other care routines, personal items, smoking policy, room service/diet, and visiting hours. Information on how to activate the Rapid Response Team has been discussed. Patient/Family are encouraged to report perceived risks to care and to ask questions if they do not understand what they are told or what they should do.
--- NOTE | 2021-07-05 13:39 | PM.IMHP ---
H&P: HPI History of Present Illness Date/Time: 07/05/21 13:39 this is a 50-year-old male patient who I had previously admitted for COVID-19 back on 06/27/2021. He has a very poor historian. He lives in a rehab facility at this time as he has a history of schizophrenia. The patient came to the emergency room today from the [facility] because of lower abdominal pain. He also had nausea vomiting and diarrhea and was passing blood clots after changing the Riggins catheter. Head plea urine. The patient failed a voiding trial without the Riggins catheter. Patient was fully vaccinated for COVID-20 November 2020. His white count was noted to be 66.7 H&H 13.6 and [address]6. Abdominal pelvis CT was read as patchy bilateral airspace disease in the mid and lower lungs compatible with pneumonia. Bladder wall thickening with perivascular fatty infiltration, compatible with cystitis. Riggins catheter present. Stable hypovascular splenic mask with indistinct margins. Consider MRI of the abdomen without and with contrast in 6 months. The patient was started on Zosyn IV fluids Levaquin and vancomycin for the possibility of healthcare associated pneumonia. Patient's blood pressure has been as low as 74/49 and is currently 89/61 with IV challenge. The patient is being admitted to ICU with sepsis, catheter related urinary tract infection, pneumonia acute kidney injury. Sodium is 133. Creatinine 2.0 glucose 329. Patient's initial lactic acid was 8.6. Now it is down at 3.0. Patient has 3+ blood in his Riggins catheter 2+ glucose 2+ protein turbid appearing. Wbc's greater than 75 and 2+ bacteria. Patient is being admitted to inpatient services on 07/05/2021. Chief Complaint: Abdominal pain Review of Systems Review of Systems: All systems reviewed & are unremarkable except as noted in HPI and below Constitutional: Constitutional: Reports as per HPI and Reports no additional constitutional complaints Eyes: Eyes: Reports as per HPI and Reports no additional eye complaints ENT: Reports system reviewed and no additional complaints, except as documented and Reports Normal hearing present Cardiovascular: Cardiovascular: Reports no additional cardiovascular complaints Respiratory: Respiratory: Reports no additional respiratory complaints and Reports no additional respiratory complaints Gastrointestinal: Gastrointestinal: Reports as per HPI and Reports no additional gastrointestinal complaints Musculoskeletal: Musculoskeletal: Reports no additional musculoskeletal complaints Integumentary/Breasts: Skin/Breast: Reports system reviewed and no additional complaints, except as docu and Reports as per HPI Neurologic: Reports system reviewed and no additional complaints, except as documented, Reports as per HPI and Reports Normal hearing present Psychiatric: Psychiatric: Reports no additional psychiatric complaints and Reports as per HPI Endocrine: Endocrine: Reports no additional endocrine complaints Hematologic/Lymphatic: Hematologic/Lymphatic: Reports no additional hematologic/lymphatic complaints Allergic/Immunologic: Allergic/Immunologic: Reports no additional allergic/immunologic complaints [facility] Past Medical History Medical History (Updated 07/05/21 @ 14:06 by Silvana Logan NP) History of diabetes mellitus History of schizophrenia Hypertension Legally blind Surgical History Surgical History (Updated 07/05/21 @ 13:47 by Silvana Logan NP) H/O cataract extraction Family History Family History (Updated 07/05/21 @ 13:48 by Silvana Logan NP) Father Cataract Mother Cataract Social History Social History Social History: The patient tells me that he is from a senior living in [place]. He is currently in a rehab facility. The patient is single and does not have any children. The patient stated that his sister is the durable power engine repairer service for healthcare. 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
--- NOTE | 2021-07-05 14:20 | WPDCNINT ---
Assessment and Plan Assessment and plan (1) Septic shock: Code(s): A41.9 - Sepsis, unspecified organism; R65.21 - Severe sepsis with septic shock Status: Acute Assessment and Plan: Septic shock secondary to UTI and pneumonia Patient received 3 saline bolus continue IV fluids. His NICOM assessment shows patient is fluid responsive and I will give him additional 1 L bolus Levophed titration to maintain map Blood cultures and urine culture sent and are pending Broad-spectrum antibiotics vancomycin, Zosyn His lactic acid level is improving and is now at 3 (2) Urinary tract infection with hematuria: Qualifiers: Urinary tract infection type: site unspecified Qualified Code(s): N39.0 - Urinary tract infection, site not specified; R31.9 - Hematuria, unspecified Code(s): N39.0 - Urinary tract infection, site not specified; R31.9 - Hematuria, unspecified Status: Acute Assessment and Plan: Patient had indwelling Riggins catheter and UA suggests UTI CT suggests cystitis See above (3) Riggins catheter in place: Code(s): Z97.8 - Presence of other specified devices Status: Acute (4) ROBERTO (acute kidney injury): Code(s): N17.9 - Acute kidney failure, unspecified Status: Acute Assessment and Plan: Likely secondary to sepsis and hypertension IV fluid Check CK No hydronephrosis on CT Monitor urine output electrolytes and creatinine Hold Metformin and Lisinopril (5) Pneumonia: Qualifiers: Laterality: right Lung location: upper lobe of lung Pneumonia type: due to unspecified organism Qualified Code(s): J18.9 - Pneumonia, unspecified organism Code(s): J18.9 - Pneumonia, unspecified organism Status: Acute Assessment and Plan: He was tested positive for COVID-19 on 06/20 an outpatient then on 06/27 at [facility]. Till now he has not required any treatment since he has not developed any hypoxia.. At this time patient is saturating 80-89% on room air and is requiring [address] His [address] abdomen pelvis shows patchy bilateral infiltrates. This may be secondary to COVID-19 versus patient may have developed secondary bacterial infection Continue empiric antibiotics to cover for secondary bacterial infection Will start dexamethasone but patient is out of window for remdesivir therapy Check inflammatory markers (6) COVID-19 virus infection: Code(s): U07.1 - COVID-19 Status: Acute Assessment and Plan: See above Isolation (7) Diabetes mellitus: Code(s): E11.9 - Type 2 diabetes mellitus without complications Status: Acute Assessment and Plan: Lantus and sliding scale Diabetic diet Additional Plan DVT prophylaxis -Lovenox as patient is at high risk for DVT due to COVID. Monitor hematuria Nutrition -diabetic diet Code Status - Full Code Total Critical Care Time - 40 minutes Due to a high probability of clinically significant, life threatening deterioration, the patient required my highest level of preparedness to intervene emergently and I personally spent this critical care time directly and personally managing the patient. This critical care time included obtaining a history; examining the patient; pulse oximetry; ordering and review of studies; arranging urgent treatment with development of a management plan; evaluation of patient's response to treatment; frequent reassessment; and discussions with other providers. It was exclusive of separately billable procedures and treating other patients and teaching time. Please see Assessment and Plan section and the rest of the note for further information on patient assessment and treatment Cylinder Inspector And Tester Consult Note Consult date: 07/05/21 HPI: Missael Brothers is a 50 year old male who has a history of schizophrenia and diabetes mellitus who lives in a [facility] typically but is currently in a rehab facility because he was recently found positive for CO
[2021-07-05] MEDS: CENTRAL LINE FLUSH 10 ML IV PUSH ×2 (14:33→21:43)
[2021-07-05 16:32] LABS: CRP 28.8 mg/dL (<1.0)
[2021-07-05] MEDS: DEXAMETHASONE SOD PHOS INJ 4 MG/ML VIAL 6 MG IV PUSH (17:39)
[2021-07-05] MEDS: INSULIN ASPART (*BKC) 100 UNITS/ML SUB-Q ×2 (17:39→21:42)
[2021-07-05 17:52] LABS: Glucose Point of Care 267 mg/dl (65-105)
[2021-07-05] MEDS: INSULIN GLARGINE (*BKC) 100 UNITS/ML 30 UNITS SUB-Q (21:42)
[2021-07-05 21:55] LABS: Glucose Point of Care 245 mg/dl (65-105)
[2021-07-06] VITALS (18 sets, daily range): BP systolic 75–123; BP diastolic 54–93; PULSE 75–94; RESP 22–33; TEMP 35.5–37.1; O2SAT 90–100
[2021-07-06] MEDS: INSULIN ASPART (*BKC) 100 UNITS/ML SUB-Q ×5 (00:28→21:17)
[2021-07-06 00:34] LABS: Glucose Point of Care 269 mg/dl (65-105)
[2021-07-06] MEDS: SODIUM CHLORIDE 0.9% IV 1,000 ML 150 ML IV CONT ×3 (01:30→17:49)
[2021-07-06] MEDS: CENTRAL LINE FLUSH 10 ML IV PUSH ×3 (05:17→20:03)
[2021-07-06 05:33] LABS: Glucose Point of Care 213 mg/dl (65-105)
[2021-07-06 05:41] LABS: Hematocrit 29.3 % (42.0-52.0); Hemoglobin 10.1 g/dL (14.0-18.0); Mean Corpuscular HGB Conc 34.5 g/dl (32-36); Mean Corpuscular Hemoglobin 28.9 pg (26-34); Mean Corpuscular Volume 83.7 fl (80-100); Mean Platelet Volume 9.8 fl (7.4-10.4); Platelet Count Result 528 k/mm3 (150-375); Red Cell Distribution Width 13.2 % (11.5-14.5)
[2021-07-06 06:05] LABS: Alanine Aminotransferase 22 U/L (4-50); Albumin Level 2.7 g/dL (3.5-5.1); Alkaline Phosphatase 82 U/L (38-126); Anion Gap 6 mmol/L (8-16); Aspartate Amino Transferase 26 U/L (17-59); Bilirubin,Total 0.6 mg/dL (0.2-1.3); Blood Urea Nitrogen 19 mg/dL (9-20); Calcium 7.2 mg/dL (8.4-10.2); Carbon Dioxide 25 mmol/L (22-30); Chloride 103 mmol/L (98-107); Estimated CRCL calculation 69 ml/min; Estimated Glomerular Filt Rate > 60; Glucose 239 mg/dL (65-110); Lactate Dehydrogenase 498 U/L (313-618); Magnesium 1.6 mg/dL (1.6-2.3); Phosphorus 3.4 mg/dL (2.5-4.5); Potassium 3.6 mmol/L (3.4-5.0); Sodium 134 mmol/L (137-145)
[2021-07-06 06:07] LABS: Lactic Acid Reflex 2.3 mmol/L (0.7-2.1)
[2021-07-06 07:11] LABS: Band Neutrophils Percent 15 % (0-6); Monocytes Absolute Manual 0.58 K/mm3 (0.1-0.90); Monocytes Percent Manual 1 % (3-9); Neutrophils Absolute Manual 54.52 K/mm3 (1.3-6.7); Neutrophils Percent Manual 79 % (46-73); Total Cells Counted 100
[2021-07-06 07:12] LABS: Anisocytosis 1+ (NORMAL); Atypical Lymphocytes Present; Platelet Estimate Increased (Adequate)
[2021-07-06] MEDS: TAMSULOSIN HCL 0.4 MG CAPSULE PO (08:21)
[2021-07-06 08:26] LABS: Reflex Lactic Acid Yes or No Add Lactic
[2021-07-06] MEDS: ENOXAPARIN 40 MG/0.4 ML SYRINGE SUB-Q (08:29)
[2021-07-06] MEDS: DEXAMETHASONE SOD PHOS INJ 4 MG/ML VIAL 6 MG IV PUSH (08:30)
[2021-07-06 10:18] LABS: Glucose Point of Care 191 mg/dl (65-105)
[2021-07-06] MEDS: CALCIUM GLUC 2,000 MG/NS 100ML 2,000 MG/100 ML BAG 100 MG IVPB (10:29)
[2021-07-06] MEDS: MAGNESIUM SULF 2 GM/WATER 50ML 2 GM/50 ML BAG IVPB (10:35)
[2021-07-06] MEDS: INSULIN GLARGINE (*BKC) 100 UNITS/ML 10 UNITS SUB-Q (10:40)
[2021-07-06 10:56] LABS: Lactic Acid 1.7 mmol/L (0.7-2.1)
[2021-07-06 13:32] LABS: Glucose Point of Care 228 mg/dl (65-105)
--- NOTE | 2021-07-06 14:06 | WPDINTPN ---
Progress Note: A&P Assessment and Plan (1) Septic shock: Code(s): A41.9 - Sepsis, unspecified organism; R65.21 - Severe sepsis with septic shock Status: Acute Assessment and Plan: Septic shock secondary to UTI and pneumonia Patient received IV fluid bolus on presentation and is now on IV fluids infusion Levophed titration to maintain map which is improving Blood cultures are pending Urine cultures growing Pseudomonas although susceptibilities are pending Broad-spectrum antibiotics vancomycin, Zosyn His lactic acid level is improving and has now normalized (2) Urinary tract infection with hematuria: Qualifiers: Urinary tract infection type: site unspecified Qualified Code(s): N39.0 - Urinary tract infection, site not specified; R31.9 - Hematuria, unspecified Code(s): N39.0 - Urinary tract infection, site not specified; R31.9 - Hematuria, unspecified Status: Acute Assessment and Plan: Patient had indwelling Riggins catheter and UA suggests UTI CT suggests cystitis See above (3) Riggins catheter in place: Code(s): Z97.8 - Presence of other specified devices Status: Acute Assessment and Plan: Continue at this time (4) ROBERTO (acute kidney injury): Code(s): N17.9 - Acute kidney failure, unspecified Status: Acute Assessment and Plan: Likely secondary to sepsis and hypertension Improved with IV fluid and creatinine has normalized No hydronephrosis on CT Monitor urine output electrolytes and creatinine Hold Metformin and Lisinopril (5) Pneumonia: Qualifiers: Laterality: right Lung location: upper lobe of lung Pneumonia type: due to unspecified organism Qualified Code(s): J18.9 - Pneumonia, unspecified organism Code(s): J18.9 - Pneumonia, unspecified organism Status: Acute Assessment and Plan: He was tested positive for COVID-19 on 06/20 an outpatient then on 06/[address] [facility]. Till now he has not required any treatment since he has not developed any hypoxia. Yesterday on presentation ICU he was saturating 80-89% on room air and was requiring 2 L of oxygen. His CT abdomen pelvis shows patchy bilateral infiltrates. This may be secondary to COVID-19 versus patient may have developed secondary bacterial infection Continue empiric antibiotics to cover for secondary bacterial infection Patient was started on dexamethasone (07/05) which will be continued for 10 days but patient was out of window for remdesivir therapy His CRP and ferritin are elevated which can be secondary to his sepsis but LDH is normal (6) COVID-19 virus infection: Code(s): U07.1 - COVID-19 Status: Acute Assessment and Plan: See above Isolation (7) Diabetes mellitus: Code(s): E11.9 - Type 2 diabetes mellitus without complications Status: Acute Assessment and Plan: Lantus and sliding scale Diabetic diet Additional Plan DVT prophylaxis -Lovenox as patient is at high risk for DVT due to COVID. Monitor hematuria Nutrition -diabetic diet Code Status - Full Code Total Critical Care Time - 30 minutes Due to a high probability of clinically significant, life threatening deterioration, the patient required my highest level of preparedness to intervene emergently and I personally spent this critical care time directly and personally managing the patient. This critical care time included obtaining a history; examining the patient; pulse oximetry; ordering and review of studies; arranging urgent treatment with development of a management plan; evaluation of patient's response to treatment; frequent reassessment; and discussions with other providers. It was exclusive of separately billable procedures and treating other patients and teaching time. Please see Assessment and Plan section and the rest of the note for further information on patient assessment and treatment Subjective Date/time seen: 07/06/21 14:06 No
[2021-07-06 17:53] LABS: Glucose Point of Care 255 mg/dl (65-105)
[2021-07-06 20:33] LABS: Glucose Point of Care 276 mg/dl (65-105)
[2021-07-06] MEDS: INSULIN GLARGINE (*BKC) 100 UNITS/ML 40 UNITS SUB-Q (21:18)
[2021-07-07] VITALS (11 sets, daily range): BP systolic 97–105; BP diastolic 65–74; PULSE 79–92; RESP 14–36; TEMP 36–37.1; O2SAT 90–96
[2021-07-07 00:25] LABS: Glucose Point of Care 240 mg/dl (65-105)
[2021-07-07] MEDS: INSULIN ASPART (*BKC) 100 UNITS/ML SUB-Q ×6 (00:38→22:17)
[2021-07-07] MEDS: SODIUM CHLORIDE 0.9% IV 1,000 ML 150 ML IV CONT ×2 (02:20→09:33)
[2021-07-07 05:08] LABS: Glucose Point of Care 224 mg/dl (65-105)
[2021-07-07] MEDS: CENTRAL LINE FLUSH 10 ML IV PUSH ×3 (05:12→23:23)
[2021-07-07 06:16] LABS: Alanine Aminotransferase 22 U/L (4-50); Albumin Level 2.2 g/dL (3.5-5.1); Alkaline Phosphatase 75 U/L (38-126); Anion Gap 9 mmol/L (8-16); Aspartate Amino Transferase 20 U/L (17-59); Bilirubin,Total 0.5 mg/dL (0.2-1.3); Blood Urea Nitrogen 12 mg/dL (9-20); Carbon Dioxide 18 mmol/L (22-30); Chloride 102 mmol/L (98-107); Estimated CRCL calculation 83 ml/min; Estimated Glomerular Filt Rate > 60; Glucose 238 mg/dL (65-110); Phosphorus 2.3 mg/dL (2.5-4.5); Potassium 2.8 mmol/L (3.4-5.0); Sodium 129 mmol/L (137-145)
[2021-07-07 06:17] LABS: Hematocrit 31.8 % (42.0-52.0); Hemoglobin 10.8 g/dL (14.0-18.0); Mean Corpuscular Hemoglobin 29.2 pg (26-34); Mean Corpuscular Volume 85.9 fl (80-100); Platelet Count Result 447 k/mm3 (150-375); Red Cell Distribution Width 12.4 % (11.5-14.5); White Blood Count 45.1 K/mm3 (4.5-10.0)
[2021-07-07 07:24] LABS: Vancomycin Trough 7.9 ug/mL (10.0-20.0)
[2021-07-07] MEDS: DEXAMETHASONE SOD PHOS INJ 4 MG/ML VIAL 6 MG IV PUSH (08:52)
[2021-07-07] MEDS: ENOXAPARIN 40 MG/0.4 ML SYRINGE SUB-Q (08:52)
[2021-07-07] MEDS: TAMSULOSIN HCL 0.4 MG CAPSULE PO (08:52)
[2021-07-07 09:09] LABS: Glucose Point of Care 215 mg/dl (65-105)
[2021-07-07] MEDS: INSULIN GLARGINE (*BKC) 100 UNITS/ML 10 UNITS SUB-Q (09:35)
[2021-07-07] MEDS: POTASSIUM PHOS,M-BASIC-D-BASIC 20 MMOL in SODIUM CHLORIDE 0.9% IV 250 ML 64.17 MMOL IVPB (09:44)
--- NOTE | 2021-07-07 09:45 | WPDINTPN ---
Progress Note: A&P Assessment and Plan (1) Septic shock: Code(s): A41.9 - Sepsis, unspecified organism; R65.21 - Severe sepsis with septic shock Status: Acute Assessment and Plan: Septic shock secondary to UTI and pneumonia Patient received IV fluid bolus on presentation and is now on IV fluids infusion. Will DC fluids once diet is advanced Levophed has been weaned off Blood cultures are pending Urine cultures growing Pseudomonas which is pansensitive Broad-spectrum antibiotics vancomycin, Zosyn. Will switch to cefepime His lactic acid level is improving and has now normalized (2) Urinary tract infection with hematuria: Qualifiers: Urinary tract infection type: site unspecified Qualified Code(s): N39.0 - Urinary tract infection, site not specified; R31.9 - Hematuria, unspecified Code(s): N39.0 - Urinary tract infection, site not specified; R31.9 - Hematuria, unspecified Status: Acute Assessment and Plan: Patient had indwelling Riggins catheter and UA suggests UTI CT suggests cystitis See above (3) Riggins catheter in place: Code(s): Z97.8 - Presence of other specified devices Status: Acute Assessment and Plan: Continue at this time (4) ROBERTO (acute kidney injury): Code(s): N17.9 - Acute kidney failure, unspecified Status: Acute Assessment and Plan: Likely secondary to sepsis and hypertension Improved with IV fluid and creatinine has normalized No hydronephrosis on CT Monitor urine output electrolytes and creatinine Continue to Hold Metformin and Lisinopril (5) Pneumonia: Qualifiers: Laterality: right Lung location: upper lobe of lung Pneumonia type: due to unspecified organism Qualified Code(s): J18.9 - Pneumonia, unspecified organism Code(s): J18.9 - Pneumonia, unspecified organism Status: Acute Assessment and Plan: He was tested positive for COVID-19 on 06/20 an outpatient then on 06/27 at [facility]. Till now he has not required any treatment since he has not developed any hypoxia. Yesterday on presentation ICU he was saturating 80-89% on room air and was requiring 2 L of oxygen. His CT abdomen pelvis shows patchy bilateral infiltrates. This may be secondary to COVID-19 versus patient may have developed secondary bacterial infection Continue empiric antibiotics to cover for secondary bacterial infection Patient was started on dexamethasone (07/05) which will be continued for 10 days but patient was out of window for remdesivir therapy His CRP and ferritin are elevated which can be secondary to his sepsis but LDH is normal (6) COVID-19 virus infection: Code(s): U07.1 - COVID-19 Status: Acute Assessment and Plan: See above Isolation (7) Diabetes mellitus: Code(s): E11.9 - Type 2 diabetes mellitus without complications Status: Acute Assessment and Plan: Lantus and sliding scale Increase Lantus dose Diabetic diet (8) Electrolyte abnormality: Code(s): E87.8 - Other disorders of electrolyte and fluid balance, not elsewhere classified Status: Acute Assessment and Plan: Replace low potassium and phosphate recheck later in the day Additional Plan DVT prophylaxis -Lovenox as patient is at high risk for DVT due to COVID. Monitor hematuria Nutrition -diabetic diet Code Status - Full Code Remove femoral CVC, PT OT consult, up in chair, incentive spirometry Transfer out of ICU today Subjective Date/time seen: 07/07/21 09:45 Off of Levophed since yesterday. No new complaint. Continues to be on oxygen at 2 L of nasal cannula. Urine output is good. He is afebrile. Review of system is unobtainable Review of Systems Review of Systems: ROS unobtainable: Yes unobtainable due to medical condition Exam Narrative: General: Pt is alert awake and in NAD Lungs/Chest: Trachea central Clear BS B/L, No crackles or wheezing. Cardiac: RRR. Normal
[2021-07-07] MEDS: POTASSIUM CHLORIDE 20 MEQ TABLET 40 MEQ PO (11:11)
--- NOTE | 2021-07-07 11:19 | PCPTNOTE ---
Attempted PT evaluation this date. RN stated to hold due to central line. Will attempt again at a later date/time.
--- NOTE | 2021-07-07 11:21 | PCOTNOTE ---
Attempted OT evaluation this date. RN stated to hold due to central line. Will attempt again at a later date/time.
--- NOTE | 2021-07-07 13:01 | PC.NURSE ---
This patient, Missael Brothers, was transferred to [facility] on 07/07/21 at 1300. Personal belongings sent with patient. Report given to WINSOME Ramires. Appropriate documentation sent with patient.
--- NOTE | 2021-07-07 13:56 | PC.NURSE ---
This patient, Missael Brothers, was received from [icu/8 to room 305 ] on 07/07/21 at 1315. Patient/family oriented to unit policies and routines
[2021-07-07 14:34] LABS: Anion Gap 10 mmol/L (8-16); Blood Urea Nitrogen 11 mg/dL (9-20); Calcium 6.7 mg/dL (8.4-10.2); Carbon Dioxide 18 mmol/L (22-30); Chloride 103 mmol/L (98-107); Estimated CRCL calculation 108 ml/min; Estimated Glomerular Filt Rate > 60; Glucose 277 mg/dL (65-110); Magnesium 1.9 mg/dL (1.6-2.3); Phosphorus 2.4 mg/dL (2.5-4.5); Potassium 3.5 mmol/L (3.4-5.0); Sodium 131 mmol/L (137-145)
[2021-07-07 16:59] LABS: Glucose Point of Care 244 mg/dl (65-105)
[2021-07-07 18:14] LABS: Glucose Point of Care 288 mg/dl (65-105)
[2021-07-07 21:10] LABS: Glucose Point of Care 301 mg/dl (65-105)
[2021-07-07] MEDS: INSULIN GLARGINE (*BKC) 100 UNITS/ML 50 UNITS SUB-Q (22:14)
[2021-07-08] VITALS (7 sets, daily range): BP systolic 112–117; BP diastolic 70–72; PULSE 86–94; RESP 18–24; TEMP 35.9–36.1; O2SAT 93–96
[2021-07-08] MEDS: INSULIN ASPART (*BKC) 100 UNITS/ML SUB-Q ×5 (01:10→20:54)
[2021-07-08 01:15] LABS: Glucose Point of Care 244 mg/dl (65-105)
[2021-07-08 04:11] LABS: Hematocrit 30.4 % (42.0-52.0); Hemoglobin 10.7 g/dL (14.0-18.0); Mean Corpuscular HGB Conc 35.2 g/dl (32-36); Mean Corpuscular Hemoglobin 29.1 pg (26-34); Mean Corpuscular Volume 82.6 fl (80-100); Mean Platelet Volume 9.7 fl (7.4-10.4); Platelet Count Result 441 k/mm3 (150-375); Red Blood Count 3.68 M/mm3 (4.6-6.20); Red Cell Distribution Width 12.7 % (11.5-14.5); White Blood Count 24.9 K/mm3 (4.5-10.0)
[2021-07-08] MEDS: SODIUM CHLORIDE 0.9% IV 1,000 ML 150 ML IV CONT ×3 (05:00→22:35)
[2021-07-08 05:16] LABS: Glucose Point of Care 203 mg/dl (65-105)
[2021-07-08] MEDS: CENTRAL LINE FLUSH 10 ML IV PUSH ×3 (05:44→20:57)
[2021-07-08] MEDS: DEXAMETHASONE SOD PHOS INJ 4 MG/ML VIAL 6 MG IV PUSH (08:18)
[2021-07-08] MEDS: ENOXAPARIN 40 MG/0.4 ML SYRINGE SUB-Q (08:18)
[2021-07-08 08:31] LABS: Glucose Point of Care 151 mg/dl (65-105)
--- NOTE | 2021-07-08 09:36 | PCPTNOTE ---
Attempted PT evaluation this date however RN stated to hold due to pt still having a central line. Will attempt at a later date/time.
[2021-07-08 09:57] LABS: Alanine Aminotransferase 17 U/L (4-50); Albumin Level 1.6 g/dL (3.5-5.1); Alkaline Phosphatase 54 U/L (38-126); Anion Gap 2 mmol/L (8-16); Aspartate Amino Transferase 16 U/L (17-59); Bilirubin,Total 0.2 mg/dL (0.2-1.3); Blood Urea Nitrogen 9 mg/dL (9-20); Calcium 5.5 mg/dL (8.4-10.2); Carbon Dioxide 18 mmol/L (22-30); Chloride 112 mmol/L (98-107); Estimated CRCL calculation 154 ml/min; Estimated Glomerular Filt Rate > 60; Glucose 178 mg/dL (65-110); Magnesium 1.6 mg/dL (1.6-2.3); Phosphorus 1.3 mg/dL (2.5-4.5); Potassium 2.5 mmol/L (3.4-5.0); Sodium 132 mmol/L (137-145)
--- NOTE | 2021-07-08 10:19 | PCOTNOTE ---
Attempted OT evaluation this date however RN stated to hold due to pt still having a central line. Will attempt at a later date/time.
[2021-07-08] MEDS: POTASSIUM CHLORIDE 20 MEQ TABLET 40 MEQ PO (10:50)
[2021-07-08] MEDS: KCL 20 MEQ/SW 100 ML 100 ML 50 MEQ IVPB ×2 (10:50→12:42)
[2021-07-08 12:17] LABS: Glucose Point of Care 203 mg/dl (65-105)
[2021-07-08 13:08] LABS: Magnesium 1.9 mg/dL (1.6-2.3)
--- NOTE | 2021-07-08 13:47 | PM.IMPN ---
Progress Note: A&P Assessment and Plan (1) Septic shock: Code(s): A41.9 - Sepsis, unspecified organism; R65.21 - Severe sepsis with septic shock Status: Acute Assessment and Plan: Septic shock secondary to UTI and pneumonia Patient received IV fluid bolus on presentation and is now on IV fluids infusion maintenance at 150 cc an hour will lower it to 75 cc an hour. The blood pressure remains stable will stop his IV fluids Also noted to be hypoalbuminemic will add albumin infusions. Initially was on facial pressure in the ICU now off Blood cultures are no growth Urine cultures growing Pseudomonas which is pansensitive Broad-spectrum antibiotics vancomycin, Zosyn and Levaquin will stop vancomycin His lactic acid level is improving and has now normalized (2) Urinary tract infection with hematuria: Qualifiers: Urinary tract infection type: site unspecified Qualified Code(s): N39.0 - Urinary tract infection, site not specified; R31.9 - Hematuria, unspecified Code(s): N39.0 - Urinary tract infection, site not specified; R31.9 - Hematuria, unspecified Status: Acute Assessment and Plan: Patient had indwelling Riggins catheter and UA suggests UTI CT suggests cystitis See above (3) Riggins catheter in place: Code(s): Z97.8 - Presence of other specified devices Status: Acute Assessment and Plan: Continue at this time Placed for urinary retention from last admission (4) ROBERTO (acute kidney injury): Code(s): N17.9 - Acute kidney failure, unspecified Status: Acute Assessment and Plan: Likely secondary to sepsis and hypertension Improved with IV fluid and creatinine has normalized No hydronephrosis on CT Monitor urine output electrolytes and creatinine Continue to Hold Metformin and Lisinopril (5) Pneumonia: Qualifiers: Laterality: right Lung location: upper lobe of lung Pneumonia type: due to unspecified organism Qualified Code(s): J18.9 - Pneumonia, unspecified organism Code(s): J18.9 - Pneumonia, unspecified organism Status: Acute Assessment and Plan: He was tested positive for COVID-19 on 06/20 an outpatient then on 06/27 at [facility]. Till now he has not required any treatment since he has not developed any hypoxia. On presentation to ICU he was saturating 80-89% on room air and was requiring [address] His [address] abdomen pelvis shows patchy bilateral infiltrates. This may be secondary to COVID-19 versus patient may have developed secondary bacterial infection Continue empiric antibiotics to cover for secondary bacterial infection for healthcare associated pneumonia Patient was started on dexamethasone (07/05) which will be continued for 10 days but patient was out of window for remdesivir therapy His CRP and ferritin are elevated which can be secondary to his sepsis but LDH is normal (6) COVID-19 virus infection: Code(s): U07.1 - COVID-19 Status: Acute Assessment and Plan: See above Isolation On Decadron (7) Diabetes mellitus: Code(s): E11.9 - Type 2 diabetes mellitus without complications Status: Acute Assessment and Plan: Lantus and sliding scale On Lantus Diabetic diet Continue to monitor Accu-Cheks (8) Electrolyte abnormality: Code(s): E87.8 - Other disorders of electrolyte and fluid balance, not elsewhere classified Status: Acute Assessment and Plan: Noted to be hypocalcemic hypokalemic hypomagnesemic today hypophosphatemia noted Replace as needed (9) Hypoalbuminemia: Code(s): E88.09 - Other disorders of plasma-protein metabolism, not elsewhere classified Status: Acute Assessment and Plan: Start IV albumin Additional Plan DVT prophylaxis -Lovenox as patient is at high risk for DVT due to COVID. Monitor hematuria Nutrition -diabetic diet Code Status - Full Code Remove femoral CVC, PT OT consult, up in chair, incentive spirom
[2021-07-08] MEDS: TAMSULOSIN HCL 0.4 MG CAPSULE PO (15:35)
[2021-07-08] MEDS: POTASSIUM PHOS/SODIUM PHOS 250 MG TABLET PO (15:35)
[2021-07-08 17:11] LABS: Glucose Point of Care 243 mg/dl (65-105)
[2021-07-08] MEDS: CALCIUM GLUC 1,000 MG/NS 50 ML 1,000 MG/50 ML BAG 100 MG IVPB (17:21)
[2021-07-08] MEDS: ALBUMIN HUMAN 25% 12.5 GM/50ML 50 ML IVPB (18:03)
[2021-07-08 18:10] LABS: Potassium 4.3 mmol/L (3.4-5.0)
[2021-07-08] MEDS: INSULIN GLARGINE (*BKC) 100 UNITS/ML 50 UNITS SUB-Q (20:56)
[2021-07-08 21:24] LABS: Glucose Point of Care 241 mg/dl (65-105)
[2021-07-09] VITALS (8 sets, daily range): BP systolic 100–151; BP diastolic 60–94; PULSE 64–89; RESP 18–20; TEMP 35.7–35.9; O2SAT 92–97
[2021-07-09] MEDS: ALBUMIN HUMAN 25% 12.5 GM/50ML 50 ML IVPB ×5 (00:29→23:52)
[2021-07-09 00:36] LABS: Glucose Point of Care 177 mg/dl (65-105)
[2021-07-09 05:30] LABS: Hematocrit 28.2 % (42.0-52.0); Hemoglobin 9.7 g/dL (14.0-18.0); Mean Corpuscular HGB Conc 34.4 g/dl (32-36); Mean Corpuscular Hemoglobin 28.7 pg (26-34); Mean Corpuscular Volume 83.4 fl (80-100); Mean Platelet Volume 9.7 fl (7.4-10.4); Platelet Count Result 382 k/mm3 (150-375); Red Blood Count 3.38 M/mm3 (4.6-6.20); White Blood Count 13.4 K/mm3 (4.5-10.0)
[2021-07-09] MEDS: CENTRAL LINE FLUSH 10 ML IV PUSH ×2 (05:31→13:36)
[2021-07-09 05:49] LABS: Alanine Aminotransferase 19 U/L (4-50); Albumin Level 2.3 g/dL (3.5-5.1); Alkaline Phosphatase 83 U/L (38-126); Anion Gap 2 mmol/L (8-16); Aspartate Amino Transferase 18 U/L (17-59); Bilirubin,Total 0.3 mg/dL (0.2-1.3); Blood Urea Nitrogen 12 mg/dL (9-20); CRP 2.7 mg/dL (<1.0); Calcium 7.6 mg/dL (8.4-10.2); Carbon Dioxide 25 mmol/L (22-30); Chloride 104 mmol/L (98-107); Estimated CRCL calculation 93 ml/min; Estimated Glomerular Filt Rate > 60; Glucose 147 mg/dL (65-110); Magnesium 2.1 mg/dL (1.6-2.3); Potassium 3.4 mmol/L (3.4-5.0); Sodium 131 mmol/L (137-145)
[2021-07-09 05:55] LABS: Glucose Point of Care 144 mg/dl (65-105)
[2021-07-09 07:58] LABS: Glucose Point of Care 105 mg/dl (65-105)
[2021-07-09] MEDS: ENOXAPARIN 40 MG/0.4 ML SYRINGE SUB-Q (08:54)
[2021-07-09] MEDS: DEXAMETHASONE SOD PHOS INJ 4 MG/ML VIAL 6 MG IV PUSH (08:54)
[2021-07-09] MEDS: TAMSULOSIN HCL 0.4 MG CAPSULE PO (08:55)
--- NOTE | 2021-07-09 09:06 | PCPTNOTE ---
discussed pt with WINSOME Hunter; pt still has femoral line intact; HOLD PT evaluation at this time;
--- NOTE | 2021-07-09 09:10 | PCOTNOTE ---
Unable to complete OT evaluation at this time due to patient having femoral line, will follow and attempt OT evaluation when line is removed.
[2021-07-09] MEDS: SODIUM CHLORIDE 0.9% IV 1,000 ML 75 ML IV CONT (09:12)
[2021-07-09] MEDS: POTASSIUM PHOS,M-BASIC-D-BASIC 15 MMOL in SODIUM CHLORIDE 0.9% IV 250 ML 63.75 MMOL IVPB (09:22)
--- NOTE | 2021-07-09 11:22 | PM.IMPN ---
Progress Note: A&P Assessment and Plan (1) Septic shock: Code(s): A41.9 - Sepsis, unspecified organism; R65.21 - Severe sepsis with septic shock Status: Acute Assessment and Plan: Septic shock secondary to UTI and pneumonia Patient received IV fluid bolus on presentation and is now on IV fluids infusion maintenance at 150 cc an hour will lower it to 75 cc an hour. The blood pressure remains stable will stop his IV fluids Also noted to be hypoalbuminemic will add albumin infusions. Initially was on facial pressure in the ICU now off Blood cultures are no growth Urine cultures growing Pseudomonas which is pansensitive Broad-spectrum antibiotics vancomycin, Zosyn and Levaquin will stop vancomycin His lactic acid level is improving and has now normalized Will stop his Zosyn today. Continue only on Levaquin for his Pseudomonas UTI and concurrent pneumonia (2) Urinary tract infection with hematuria: Qualifiers: Urinary tract infection type: site unspecified Qualified Code(s): N39.0 - Urinary tract infection, site not specified; R31.9 - Hematuria, unspecified Code(s): N39.0 - Urinary tract infection, site not specified; R31.9 - Hematuria, unspecified Status: Acute Assessment and Plan: Patient had indwelling Riggins catheter and UA suggests UTI CT suggests cystitis See above Patient had a Riggins catheter placed last admission for urinary retention to follow-up with urology as an outpatient however presents back with urosepsis likely related to indwelling urinary catheter Will attempt removal of Riggins catheter this admission void trial (3) Riggins catheter in place: Code(s): Z97.8 - Presence of other specified devices Status: Acute Assessment and Plan: Continue at this time Placed for urinary retention from last admission (4) ROBERTO (acute kidney injury): Code(s): N17.9 - Acute kidney failure, unspecified Status: Acute Assessment and Plan: Likely secondary to sepsis and hypertension Improved with IV fluid and creatinine has normalized No hydronephrosis on CT Monitor urine output electrolytes and creatinine Continue to Hold Metformin and Lisinopril (5) Pneumonia: Qualifiers: Laterality: right Lung location: upper lobe of lung Pneumonia type: due to unspecified organism Qualified Code(s): J18.9 - Pneumonia, unspecified organism Code(s): J18.9 - Pneumonia, unspecified organism Status: Acute Assessment and Plan: He was tested positive for COVID-19 on 06/20 an outpatient then on 06/27 at [facility]. Till now he has not required any treatment since he has not developed any hypoxia. On presentation to ICU he was saturating 80-89% on room air and was requiring [address] His [address] abdomen pelvis shows patchy bilateral infiltrates. This may be secondary to COVID-19 versus patient may have developed secondary bacterial infection Continue empiric antibiotics to cover for secondary bacterial infection for healthcare associated pneumonia Patient was started on dexamethasone (07/05) which will be continued for 10 days but patient was out of window for remdesivir therapy His CRP and ferritin are elevated which can be secondary to his sepsis but LDH is normal (6) COVID-19 virus infection: Code(s): U07.1 - COVID-19 Status: Acute Assessment and Plan: See above Isolation On Decadron (7) Diabetes mellitus: Code(s): E11.9 - Type 2 diabetes mellitus without complications Status: Acute Assessment and Plan: Lantus and sliding scale On Lantus Diabetic diet Continue to monitor Accu-Cheks (8) Electrolyte abnormality: Code(s): E87.8 - Other disorders of electrolyte and fluid balance, not elsewhere classified Status: Acute Assessment and Plan: Noted to be hypocalcemic hypokalemic hypomagnesemic today hypophosphatemia noted Replace as needed (9) Hypoalbuminemia: Code(s): E88.09
[2021-07-09 12:54] LABS: Glucose Point of Care 159 mg/dl (65-105)
[2021-07-09 16:29] LABS: Glucose Point of Care 219 mg/dl (65-105)
[2021-07-09] MEDS: INSULIN ASPART (*BKC) 100 UNITS/ML SUB-Q ×2 (17:25→21:15)
[2021-07-09 20:43] LABS: Glucose Point of Care 137 mg/dl (65-105)
[2021-07-09] MEDS: INSULIN GLARGINE (*BKC) 100 UNITS/ML 50 UNITS SUB-Q (21:17)
[2021-07-09 22:14] LABS: Glucose Point of Care 203 mg/dl (65-105)
[2021-07-10] MEDS: ALBUMIN HUMAN 25% 12.5 GM/50ML 50 ML IVPB ×3 (05:31→18:05)
[2021-07-10 07:20] LABS: Hematocrit 30.6 % (42.0-52.0); Hemoglobin 10.3 g/dL (14.0-18.0); Mean Corpuscular HGB Conc 33.7 g/dl (32-36); Mean Corpuscular Hemoglobin 27.8 pg (26-34); Mean Corpuscular Volume 82.5 fl (80-100); Mean Platelet Volume 9.7 fl (7.4-10.4); Platelet Count Result 472 k/mm3 (150-375); Red Blood Count 3.71 M/mm3 (4.6-6.20); White Blood Count 11.6 K/mm3 (4.5-10.0)
[2021-07-10 07:47] LABS: Alanine Aminotransferase 27 U/L (4-50); Albumin Level 3.3 g/dL (3.5-5.1); Alkaline Phosphatase 55 U/L (38-126); Anion Gap 8 mmol/L (8-16); Aspartate Amino Transferase 21 U/L (17-59); Bilirubin,Total 0.4 mg/dL (0.2-1.3); Blood Urea Nitrogen 13 mg/dL (9-20); Carbon Dioxide 25 mmol/L (22-30); Chloride 102 mmol/L (98-107); Estimated CRCL calculation 110 ml/min; Estimated Glomerular Filt Rate > 60; Glucose 78 mg/dL (65-110); Phosphorus 2.8 mg/dL (2.5-4.5); Potassium 3.2 mmol/L (3.4-5.0); Sodium 135 mmol/L (137-145)
[2021-07-10 07:59] LABS: Glucose Point of Care 68 mg/dl (65-105)
[2021-07-10 08:00] VITALS: BP 152/88; PULSE 74; RESP 18; TEMP 36; O2SAT 96
[2021-07-10] MEDS: DEXAMETHASONE SOD PHOS INJ 4 MG/ML VIAL 6 MG IV PUSH (08:43)
[2021-07-10] MEDS: ENOXAPARIN 40 MG/0.4 ML SYRINGE SUB-Q (08:43)
[2021-07-10] MEDS: TAMSULOSIN HCL 0.4 MG CAPSULE PO (08:43)
[2021-07-10 10:03] LABS: Glucose Point of Care 98 mg/dl (65-105)
[2021-07-10 11:36] LABS: Glucose Point of Care 139 mg/dl (65-105)
--- NOTE | 2021-07-10 12:21 | PM.IMPN ---
Progress Note: A&P Assessment and Plan (1) Septic shock: Code(s): A41.9 - Sepsis, unspecified organism; R65.21 - Severe sepsis with septic shock Status: Acute Assessment and Plan: Septic shock secondary to UTI and pneumonia Pt is doing better now. Pt is off zosyn and vancomycin now. Continue only on Levaquin for his Pseudomonas UTI and concurrent pneumonia Pt to [place] [id number] [place] [address] BC negative growth UC positive for pseudomonas sensitive to levaquin (2) Urinary tract infection with hematuria: Qualifiers: Urinary tract infection type: site unspecified Qualified Code(s): N39.0 - Urinary tract infection, site not specified; R31.9 - Hematuria, unspecified Code(s): N39.0 - Urinary tract infection, site not specified; R31.9 - Hematuria, unspecified Status: Acute Assessment and Plan: Patient had indwelling Riggins catheter and UA suggests UTI CT suggests cystitis Riggins removed (3) Riggins catheter in place: Code(s): Z97.8 - Presence of other specified devices Status: Inactive Assessment and Plan: Catheter removed (4) ROBERTO (acute kidney injury): Code(s): N17.9 - Acute kidney failure, unspecified Status: Resolved Assessment and Plan: Resolved with fluid administration Continue to Hold Metformin and Lisinopril (5) Pneumonia: Qualifiers: Laterality: right Lung location: upper lobe of lung Pneumonia type: due to unspecified organism Qualified Code(s): J18.9 - Pneumonia, unspecified organism Code(s): J18.9 - Pneumonia, unspecified organism Status: Acute Assessment and Plan: He was tested positive for COVID-19 on 06/20 an outpatient then on 06/27 at [facility]. Patient was started on dexamethasone (07/05) which will be continued for 10 days but patient was out of window for remdesivir therapy Pt is out of isolation now (6) COVID-19 virus infection: Code(s): U07.1 - COVID-19 Status: Acute Assessment and Plan: Pt was treated is out of isolation now (7) Diabetes mellitus: Code(s): E11.9 - Type 2 diabetes mellitus without complications Status: Acute Assessment and Plan: Lantus and sliding scale On Lantus Diabetic diet (8) Electrolyte abnormality: Code(s): E87.8 - Other disorders of electrolyte and fluid balance, not elsewhere classified Status: Acute Assessment and Plan: Noted to be hypocalcemic hypokalemic hypomagnesemic today hypophosphatemia noted Replace as needed potassium low today (9) Hypoalbuminemia: Code(s): E88.09 - Other disorders of plasma-protein metabolism, not elsewhere classified Status: Acute Assessment and Plan: Start IV albumin PRN Subjective Date/time seen: 07/10/21 12:21 Interval history: 07/08/2021: No overnight events. Blood pressure is improved. Riggins catheter in place for urinary retention. Remains afebrile. Lab abnormalities from this morning's labs were noted 07/09/2021: No overnight events. Blood pressure is much improved. Remains afebrile. Denies any pain shortness of breath or chest pain 07/10/2021: Pt awaiting removal of femoral line. Pt participating in physical therapy. Pt feels better. Review of Systems Review of Systems: All systems reviewed & are unremarkable except as noted in HPI and below Exam Narrative: General: Pt is alert awake and in NAD legally blind Lungs/Chest: Clear no added lung sounds Cardiac: RRR. Normal S1 S2. Abdomen: Normal bowel sounds. Soft. Extremities: No clubbing, cyanosis or edema. Warm Neurologic: Follows commands. Moves all 4 extremities Objective Data Vital Signs Vital Signs: Vital Signs - 24 hr 07/09/21 15:57 07/09/21 20:00 07/09/21 23:54 Temperature 35.7 C L 35.9 C L Pulse Rate 83 76 76 Respiratory Rate 19 18 18 Blood Pressure 131/94 H 151/87 H Pulse Oximetry 97 96 96 1
[2021-07-10 16:00] VITALS: BP 145/96; PULSE 89; RESP 18; TEMP 36.5; O2SAT 99
[2021-07-10 17:39] LABS: Glucose Point of Care 214 mg/dl (65-105)
[2021-07-10] MEDS: POTASSIUM CHLORIDE 20 MEQ PACKET (FOR LIQUID) PO (18:04)
[2021-07-10] MEDS: INSULIN ASPART (*BKC) 100 UNITS/ML SUB-Q ×2 (18:04→21:25)
[2021-07-10 20:00] VITALS: O2SAT 99
[2021-07-10 20:46] LABS: Glucose Point of Care 228 mg/dl (65-105)
[2021-07-10] MEDS: INSULIN GLARGINE (*BKC) 100 UNITS/ML 50 UNITS SUB-Q (21:28)
[2021-07-10 23:48] VITALS: O2SAT 99
[2021-07-11] VITALS: BP 144/78; PULSE 71; RESP 18; TEMP 36.1; O2SAT 99
[2021-07-11] MEDS: ALBUMIN HUMAN 25% 12.5 GM/50ML 50 ML IVPB ×3 (02:06→12:31)
[2021-07-11 05:54] VITALS: BP 157/90; PULSE 71; RESP 16; TEMP 36.1; O2SAT 98
[2021-07-11 06:22] LABS: Glucose Point of Care 117 mg/dl (65-105)
[2021-07-11 06:22] LABS: Glucose Point of Care 54 mg/dl (65-105)
--- NOTE | 2021-07-11 06:24 | PC.NURSE ---
Patient's blood sugar was checked this morning 07/11/2021 and read 54. Patient wanted only apple juice. Patient drank 3 small cartons. Patient's blood sugar was rechecked 30 minutes later. Patient's blood sugar is now 117.
[2021-07-11 07:58] LABS: Glucose Point of Care 135 mg/dl (65-105)
[2021-07-11] MEDS: POTASSIUM CHLORIDE 20 MEQ PACKET (FOR LIQUID) PO (09:01)
[2021-07-11] MEDS: TAMSULOSIN HCL 0.4 MG CAPSULE PO (09:01)
[2021-07-11] MEDS: DEXAMETHASONE SOD PHOS INJ 4 MG/ML VIAL 6 MG IV PUSH (09:01)
[2021-07-11] MEDS: ENOXAPARIN 40 MG/0.4 ML SYRINGE SUB-Q (09:01)
--- NOTE | 2021-07-11 09:40 | PCPTNOTE ---
Attempted to see pt for PT session this AM. Pt adamantly declined, stating he has a headache and nausea. RN was informed. Will return later as schedule allows and pt is willing to participate.
[2021-07-11 10:15] LABS: Hematocrit 32.4 % (42.0-52.0); Hemoglobin 11.3 g/dL (14.0-18.0); Mean Corpuscular HGB Conc 34.9 g/dl (32-36); Mean Corpuscular Volume 83.3 fl (80-100); Mean Platelet Volume 9.5 fl (7.4-10.4); Platelet Count Result 379 k/mm3 (150-375); Red Blood Count 3.89 M/mm3 (4.6-6.20); White Blood Count 8.4 K/mm3 (4.5-10.0)
[2021-07-11 10:35] LABS: Anion Gap 6 mmol/L (8-16); Blood Urea Nitrogen 8 mg/dL (9-20); Calcium 8.3 mg/dL (8.4-10.2); Carbon Dioxide 29 mmol/L (22-30); Chloride 96 mmol/L (98-107); Estimated CRCL calculation 130 ml/min; Estimated Glomerular Filt Rate > 60; Glucose 199 mg/dL (65-110); Potassium 3.3 mmol/L (3.4-5.0); Sodium 131 mmol/L (137-145)
--- NOTE | 2021-07-11 11:25 | PCOTNOTE ---
Attempted to see patient this date at 11:25AM. Patient declined OT services stating he felt nauseated and had a bad headache, patient did not open his eyes. Commented I just want a nap . RN aware of symptoms. Attempted to educate patient on benefits of OT this date patient continued to decline.
--- NOTE | 2021-07-11 11:39 | PCPTNOTE ---
Attempted to see pt for PT session again, but pt continues to decline due to nausea and headache. Will return later as schedule allows and pt is willing.
[2021-07-11 11:52] LABS: Glucose Point of Care 168 mg/dl (65-105)
--- NOTE | 2021-07-11 14:33 | PM.IMPN ---
Progress Note: A&P Assessment and Plan (1) Septic shock: Code(s): A41.9 - Sepsis, unspecified organism; R65.21 - Severe sepsis with septic shock Status: Acute Assessment and Plan: Septic shock secondary to UTI and pneumonia Pt is doing better now. Pt is off zosyn and vancomycin now. Continue only on Levaquin for his Pseudomonas UTI and concurrent pneumonia Pt to [place] [id number] was [address] BC negative growth UC positive for pseudomonas sensitive to levaquin (2) Urinary tract infection with hematuria: Qualifiers: Urinary tract infection type: site unspecified Qualified Code(s): N39.0 - Urinary tract infection, site not specified; R31.9 - Hematuria, unspecified Code(s): N39.0 - Urinary tract infection, site not specified; R31.9 - Hematuria, unspecified Status: Acute Assessment and Plan: Patient had indwelling Riggins catheter and UA suggests UTI CT suggests cystitis Riggins removed (3) Riggins catheter in place: Code(s): Z97.8 - Presence of other specified devices Status: Inactive Assessment and Plan: Catheter removed (4) ROBERTO (acute kidney injury): Code(s): N17.9 - Acute kidney failure, unspecified Status: Resolved Assessment and Plan: Resolved with fluid administration Continue to Hold Metformin and Lisinopril (5) Pneumonia: Qualifiers: Laterality: right Lung location: upper lobe of lung Pneumonia type: due to unspecified organism Qualified Code(s): J18.9 - Pneumonia, unspecified organism Code(s): J18.9 - Pneumonia, unspecified organism Status: Acute Assessment and Plan: He was tested positive for COVID-19 on 06/20 an outpatient then on 06/27 at [facility]. Patient was started on dexamethasone (07/05) which will be continued for 10 days but patient was out of window for remdesivir therapy Pt is out of isolation now (6) COVID-19 virus infection: Code(s): U07.1 - COVID-19 Status: Acute Assessment and Plan: Pt was treated is out of isolation now (7) Diabetes mellitus: Code(s): E11.9 - Type 2 diabetes mellitus without complications Status: Acute Assessment and Plan: Lantus and sliding scale On Lantus Diabetic diet (8) Electrolyte abnormality: Code(s): E87.8 - Other disorders of electrolyte and fluid balance, not elsewhere classified Status: Acute Assessment and Plan: Noted to be hypocalcemic hypokalemic hypomagnesemic today hypophosphatemia noted Replace as needed potassium low today (9) Hypoalbuminemia: Code(s): E88.09 - Other disorders of plasma-protein metabolism, not elsewhere classified Status: Acute Assessment and Plan: Start IV albumin PRN Additional Plan DVT prophylaxis -Lovenox Nutrition -diabetic diet Code Status - Full Code Remove femoral CVC, PT OT consult, up in chair, incentive spirometry High BPs - started norvasc Subjective Date/time seen: 07/11/21 14:33 Interval history: 07/08/2021: No overnight events. Blood pressure is improved. Riggins catheter in place for urinary retention. Remains afebrile. Lab abnormalities from this morning's labs were noted 07/09/2021: No overnight events. Blood pressure is much improved. Remains afebrile. Denies any pain shortness of breath or chest pain 07/10/2021: Pt awaiting removal of femoral line. Pt participating in physical therapy. Pt feels better. 07/11/2021: Pt still feels tired, Bp slightly high. potassium is low no specific complaints Review of Systems Review of Systems: All systems reviewed & are unremarkable except as noted in HPI and below Exam Narrative: General: Pt is alert awake, legally blind Lungs/Chest: Clear no added lung sounds Cardiac: RRR. Normal S1 S2. Abdomen: Normal bowel sounds. Soft. Extremities: No clubbing, cyanosis or edema. Warm Neurologic: Follows commands. Moves all
[2021-07-11 16:00] VITALS: BP 133/87; PULSE 86; RESP 18; TEMP 36.4; O2SAT 97
[2021-07-11] MEDS: POTASSIUM CHLORIDE 20 MEQ PACKET (FOR LIQUID) 40 MEQ PO (17:01)
[2021-07-11 17:10] LABS: Glucose Point of Care 187 mg/dl (65-105)
[2021-07-11 20:00] VITALS: O2SAT 97
[2021-07-11 20:15] VITALS: BP 129/85; PULSE 76; RESP 20; TEMP 36.1; O2SAT 100
[2021-07-11 22:10] LABS: Glucose Point of Care 192 mg/dl (65-105)
[2021-07-12 04:05] VITALS: BP 131/77; PULSE 71; RESP 18; TEMP 36.5; O2SAT 98
[2021-07-12 05:33] LABS: Glucose Point of Care 144 mg/dl (65-105)
[2021-07-12 08:27] LABS: Glucose Point of Care 97 mg/dl (65-105)
--- NOTE | 2021-07-12 08:30 | PCNWS ---
Weekly nutritional screen. Patient is tolerating current diet with adequate intake. No weight loss reported. No nutritional needs at this time.
[2021-07-12 10:12] LABS: Hematocrit 35.1 % (42.0-52.0); Mean Corpuscular HGB Conc 34.2 g/dl (32-36); Mean Corpuscular Hemoglobin 28.6 pg (26-34); Mean Corpuscular Volume 83.6 fl (80-100); Mean Platelet Volume 9.6 fl (7.4-10.4); Platelet Count Result 400 k/mm3 (150-375); Red Cell Distribution Width 13.4 % (11.5-14.5); White Blood Count 8.1 K/mm3 (4.5-10.0)
[2021-07-12] MEDS: ENOXAPARIN 40 MG/0.4 ML SYRINGE SUB-Q (10:27)
[2021-07-12] MEDS: POTASSIUM CHLORIDE 20 MEQ PACKET (FOR LIQUID) 40 MEQ PO ×2 (10:27→16:25)
[2021-07-12] MEDS: DEXAMETHASONE SOD PHOS INJ 4 MG/ML VIAL 6 MG IV PUSH (10:27)
[2021-07-12] MEDS: amLODIPine BESYLATE 5 MG TABLET PO (10:27)
[2021-07-12] MEDS: TAMSULOSIN HCL 0.4 MG CAPSULE PO (10:27)
[2021-07-12 10:29] LABS: Albumin Level 3.4 g/dL (3.5-5.1); Anion Gap 8 mmol/L (8-16); Blood Urea Nitrogen 12 mg/dL (9-20); Calcium 8.4 mg/dL (8.4-10.2); Carbon Dioxide 28 mmol/L (22-30); Chloride 97 mmol/L (98-107); Estimated CRCL calculation 109 ml/min; Estimated Glomerular Filt Rate > 60; Glucose 180 mg/dL (65-110); Potassium 3.9 mmol/L (3.4-5.0); Sodium 133 mmol/L (137-145)
[2021-07-12 11:44] LABS: Glucose Point of Care 174 mg/dl (65-105)
--- NOTE | 2021-07-12 15:26 | PCOTNOTE ---
On 07/12/21, the student, Carolina RODRIGUEZ, provided care and completed [facility] documentation on this patient. I have reviewed the student's documentation and agree with the findings.
--- NOTE | 2021-07-12 15:56 | PM.IMPN ---
Progress Note: A&P Assessment and Plan (1) Septic shock: Code(s): A41.9 - Sepsis, unspecified organism; R65.21 - Severe sepsis with septic shock Status: Acute Assessment and Plan: Resolved. Septic shock secondary to UTI and pneumonia. Levophed has been discontinued and BP remaining stable. Afebrile. Leukocytosis resolved. Started with Zosyn and vancomycin and has now been transitioned to Levaquin for coverage of UTI and concurrent pneumonia. Urine culture with growth of Pseudomonas sensitive to Levaquin Blood cultures negative (2) Urinary tract infection with hematuria: Qualifiers: Urinary tract infection type: site unspecified Qualified Code(s): N39.0 - Urinary tract infection, site not specified; R31.9 - Hematuria, unspecified Code(s): N39.0 - Urinary tract infection, site not specified; R31.9 - Hematuria, unspecified Status: Acute Assessment and Plan: See above. Riggins has been removed and patient is voiding. He is incontinent of urine and wearing depends. (3) Pneumonia: Qualifiers: Laterality: right Lung location: upper lobe of lung Pneumonia type: due to unspecified organism Qualified Code(s): J18.9 - Pneumonia, unspecified organism Code(s): J18.9 - Pneumonia, unspecified organism Status: Acute Assessment and Plan: He was tested positive for COVID-19 on 06/20 as an outpatient and again 06/27 at [place]. Hospitalized from 06/27-06/30 but did not require COVID specific therapy as he had no oxygen requirements. He now require supplemental oxygen. Has needed up to 5 L. Now maintaining adequate O2 sats on 3 L He has been on dexamethasone, started on 07/05/2021. Not a candidate for remdesivir as he is outside of the window Continue Levaquin as above for secondary bacterial pneumonia Supportive care to include bronchodilators, expectorants, antipyretics Repeat CXR tomorrow morning Isolation precautions have been discontinued (4) ROBERTO (acute kidney injury): Code(s): N17.9 - Acute kidney failure, unspecified Status: Resolved Assessment and Plan: Resolved with fluid administration (5) COVID-19 virus infection: Code(s): U07.1 - COVID-19 Status: Acute Assessment and Plan: Please see above (6) Diabetes mellitus: Code(s): E11.9 - Type 2 diabetes mellitus without complications Status: Acute Assessment and Plan: A1c is 7.5. Blood sugars have been reasonably controlled. Continue Accu-Cheks, sliding scale insulin, hypoglycemic protocol Continue Lantus 50 units q.h.s. Monitor blood sugars and adjust medications as needed (7) Hypoalbuminemia: Code(s): E88.09 - Other disorders of plasma-protein metabolism, not elsewhere classified Status: Acute Assessment and Plan: Albumin was low. Etiology for this is not clear, possibly malnourishment. Received IV albumin. Albumin is 3.4 today, nearly within normal limits. Continue to monitor Subjective Date/time seen: 07/12/21 15:56 Interval history: Date of service: 07/12/2021 Missael Brothers is a 51-year-old male with a history of diabetes mellitus, schizophrenia, hypertension, and blindness who is seen in follow-up for UTI and pneumonia. I am assuming care today for him after reviewing his chart. He has been moved to the medical floor from the intensive care unit on 07/08/2021. Today, he reports that he is feeling well. He denies shortness of breath, cough, or chest pain. He denies abdominal pain. He is not really able to provide any further history. He seems to be eating well and did request Nicho crackers and something to drink while I was in the room. Review of Systems Review of Systems: Limited review of systems given patient's mental status. Pertinent positives and negatives as per HPI. Exam Narrative: Mr. Brothers is a well-nourished, well-appearing 50-year-old m
[2021-07-12 16:40] LABS: Glucose Point of Care 272 mg/dl (65-105)
[2021-07-12] MEDS: INSULIN ASPART (*BKC) 100 UNITS/ML SUB-Q ×2 (16:50→21:07)
[2021-07-12 20:00] VITALS: O2SAT 100
[2021-07-12] MEDS: guaiFENesin 12 HR 600 MG TABCR PO (21:04)
[2021-07-12 22:00] VITALS: BP 124/81; PULSE 87; RESP 16; TEMP 36.4; O2SAT 100
[2021-07-12 22:26] LABS: Glucose Point of Care 258 mg/dl (65-105)
[2021-07-13 05:58] LABS: Glucose Point of Care 176 mg/dl (65-105)
[2021-07-13 06:00] VITALS: BP 118/76; PULSE 84; RESP 16; TEMP 36.6; O2SAT 100
[2021-07-13 07:28] LABS: Hematocrit 38.3 % (42.0-52.0); Mean Corpuscular HGB Conc 33.9 g/dl (32-36); Mean Corpuscular Hemoglobin 28.6 pg (26-34); Mean Corpuscular Volume 84.4 fl (80-100); Mean Platelet Volume 9.5 fl (7.4-10.4); Platelet Count Result 417 k/mm3 (150-375); Red Blood Count 4.54 M/mm3 (4.6-6.20); Red Cell Distribution Width 13.8 % (11.5-14.5); White Blood Count 8.9 K/mm3 (4.5-10.0)
[2021-07-13 07:46] LABS: Alanine Aminotransferase 36 U/L (4-50); Albumin Level 3.7 g/dL (3.5-5.1); Alkaline Phosphatase 56 U/L (38-126); Anion Gap 11 mmol/L (8-16); Aspartate Amino Transferase 21 U/L (17-59); Bilirubin,Total 0.5 mg/dL (0.2-1.3); Blood Urea Nitrogen 14 mg/dL (9-20); Calcium 8.9 mg/dL (8.4-10.2); Carbon Dioxide 22 mmol/L (22-30); Chloride 95 mmol/L (98-107); Estimated CRCL calculation 128 ml/min; Estimated Glomerular Filt Rate > 60; Glucose 233 mg/dL (65-110); Magnesium 1.7 mg/dL (1.6-2.3); Potassium 3.7 mmol/L (3.4-5.0); Sodium 128 mmol/L (137-145)
[2021-07-13 07:49] LABS: Glucose Point of Care 191 mg/dl (65-105)
[2021-07-13 08:30] VITALS: O2SAT 97
[2021-07-13] MEDS: amLODIPine BESYLATE 5 MG TABLET PO (08:30)
[2021-07-13] MEDS: TAMSULOSIN HCL 0.4 MG CAPSULE PO (08:30)
[2021-07-13] MEDS: ENOXAPARIN 40 MG/0.4 ML SYRINGE SUB-Q (08:30)
[2021-07-13] MEDS: POTASSIUM CHLORIDE 20 MEQ PACKET (FOR LIQUID) 40 MEQ PO ×2 (08:31→17:38)
[2021-07-13] MEDS: DEXAMETHASONE SOD PHOS INJ 4 MG/ML VIAL 6 MG IV PUSH (08:31)
[2021-07-13] MEDS: guaiFENesin 12 HR 600 MG TABCR PO ×2 (08:31→20:56)
[2021-07-13 11:13] LABS: Glucose Point of Care 217 mg/dl (65-105)
[2021-07-13] MEDS: INSULIN ASPART (*BKC) 100 UNITS/ML SUB-Q ×3 (11:47→20:55)
--- NOTE | 2021-07-13 11:58 | PCPTNOTE ---
Attempted to see patient for Physical Therapy this AM. Patient was being seeing by OT and then his lunch was going to be coming.
--- NOTE | 2021-07-13 12:12 | PM.IMPN ---
Progress Note: A&P Assessment and Plan (1) Septic shock: Code(s): A41.9 - Sepsis, unspecified organism; R65.21 - Severe sepsis with septic shock Status: Acute Assessment and Plan: Resolved. Septic shock secondary to UTI and pneumonia. Levophed was discontinued and BP remaining stable. Afebrile. Leukocytosis resolved. Started with broad spectrum Zosyn and vancomycin and was transitioned to Levaquin for coverage of UTI and concurrent pneumonia. Will plan to complete 10 days of Levaquin (day #8 today) Urine culture with growth of Pseudomonas sensitive to Levaquin Blood cultures negative (2) Urinary tract infection with hematuria: Qualifiers: Urinary tract infection type: site unspecified Qualified Code(s): N39.0 - Urinary tract infection, site not specified; R31.9 - Hematuria, unspecified Code(s): N39.0 - Urinary tract infection, site not specified; R31.9 - Hematuria, unspecified Status: Acute Assessment and Plan: See above. Riggins was removed and patient is voiding. He is incontinent of urine and wearing depends. (3) Pneumonia: Qualifiers: Laterality: right Lung location: upper lobe of lung Pneumonia type: due to unspecified organism Qualified Code(s): J18.9 - Pneumonia, unspecified organism Code(s): J18.9 - Pneumonia, unspecified organism Status: Acute Assessment and Plan: He tested positive for COVID-19 on 06/20 as an outpatient and again 06/27 at [place]. Hospitalized from 06/27-06/30 but did not require COVID specific therapy as he had no oxygen requirements. He now require supplemental oxygen. Has needed up to 5 L. He is now 100% on 4 L, therefore O2 should be weaned. Continue to wean as tolerated with goal saturation 92% or above He has been on dexamethasone, started on 07/05/2021. Day #9 today Not a candidate for remdesivir as he is outside of the window Continue Levaquin as above for secondary bacterial pneumonia Supportive care to include bronchodilators, expectorants, antipyretics Repeat CXR today shows stable opacities Isolation precautions have been discontinued (4) ROBERTO (acute kidney injury): Code(s): N17.9 - Acute kidney failure, unspecified Status: Resolved Assessment and Plan: Secondary to septic shock. Resolved with fluid administration. Creatinine is 0.5 today (5) COVID-19 virus infection: Code(s): U07.1 - COVID-19 Status: Acute Assessment and Plan: Please see above (6) Diabetes mellitus: Code(s): E11.9 - Type 2 diabetes mellitus without complications Status: Acute Assessment and Plan: A1c is 7.5. Blood sugars have been reasonably controlled. Continue Accu-Cheks, sliding scale insulin, hypoglycemic protocol Continue Lantus 50 units q.h.s. Monitor blood sugars and adjust medications as needed (7) Hypoalbuminemia: Code(s): E88.09 - Other disorders of plasma-protein metabolism, not elsewhere classified Status: Acute Assessment and Plan: Resolved. Etiology for this is not clear, possibly malnourishment. Received IV albumin. Albumin is within normal limits today at 3.7 (8) Hypertension: Code(s): I10 - Essential (primary) hypertension Status: Chronic Assessment and Plan: Blood pressure has been well controlled. Last BP 118/76 Will resume his home lisinopril. Amlodipine was added, but he likely does not require a 2nd antihypertensive agent, therefore will discontinue. Will monitor blood pressure trends with home dose lisinopril monotherapy. Adjust as needed (9) Hyponatremia: Code(s): E87.1 - Hypo-osmolality and hyponatremia Status: Acute Assessment and Plan: Sodium down to 128 today. Noted that he did have issues with hyponatremia and his last admission 2 weeks ago Improved with fluid restriction on last admission. Will implement 1800 cc fluid restriction and r
--- NOTE | 2021-07-13 13:04 | PCOTNOTE ---
On 07/13/21, Carolina GALLO, provided care and completed [employer] documentation on this patient. I have reviewed the student's documentation and agree with the findings.
[2021-07-13 14:00] VITALS: BP 97/60; PULSE 98; RESP 18; TEMP 36.1; O2SAT 100
[2021-07-13 14:47] LABS: Sodium 127 mmol/L (137-145)
[2021-07-13 16:40] LABS: Glucose Point of Care 253 mg/dl (65-105)
[2021-07-13] MEDS: lisinopriL 5 MG TABLET PO (17:38)
[2021-07-13 20:00] VITALS: O2SAT 95
[2021-07-13 20:55] LABS: Glucose Point of Care 205 mg/dl (65-105)
[2021-07-13 22:00] VITALS: BP 116/80; PULSE 89; RESP 17; TEMP 36.7; O2SAT 95
[2021-07-14 05:39] VITALS: BP 113/66; PULSE 78; RESP 18; TEMP 37.1; O2SAT 97
[2021-07-14 06:57] LABS: Hematocrit 37.2 % (42.0-52.0); Hemoglobin 12.5 g/dL (14.0-18.0); Mean Corpuscular HGB Conc 33.6 g/dl (32-36); Mean Corpuscular Hemoglobin 28.2 pg (26-34); Mean Platelet Volume 9.6 fl (7.4-10.4); Platelet Count Result 391 k/mm3 (150-375); Red Blood Count 4.43 M/mm3 (4.6-6.20); Red Cell Distribution Width 13.9 % (11.5-14.5); White Blood Count 8.6 K/mm3 (4.5-10.0)
[2021-07-14 07:13] LABS: Anion Gap 7 mmol/L (8-16); Blood Urea Nitrogen 21 mg/dL (9-20); Calcium 8.7 mg/dL (8.4-10.2); Carbon Dioxide 24 mmol/L (22-30); Chloride 96 mmol/L (98-107); Estimated CRCL calculation 126 ml/min; Estimated Glomerular Filt Rate > 60; Glucose 233 mg/dL (65-110); Sodium 127 mmol/L (137-145)
[2021-07-14 07:55] LABS: Glucose Point of Care 202 mg/dl (65-105)
[2021-07-14] MEDS: INSULIN ASPART (*BKC) 100 UNITS/ML SUB-Q ×4 (08:29→20:20)
[2021-07-14] MEDS: ENOXAPARIN 40 MG/0.4 ML SYRINGE SUB-Q (09:49)
[2021-07-14] MEDS: guaiFENesin 12 HR 600 MG TABCR PO ×2 (09:50→20:15)
[2021-07-14] MEDS: TAMSULOSIN HCL 0.4 MG CAPSULE PO (09:50)
[2021-07-14] MEDS: DEXAMETHASONE SOD PHOS INJ 4 MG/ML VIAL 6 MG IV PUSH (09:50)
[2021-07-14] MEDS: SODIUM CHLORIDE 500 MG TABLET PO ×2 (09:51→16:53)
[2021-07-14] MEDS: POTASSIUM CHLORIDE 20 MEQ PACKET (FOR LIQUID) 40 MEQ PO ×2 (09:51→16:53)
[2021-07-14] MEDS: lisinopriL 5 MG TABLET PO (09:51)
--- NOTE | 2021-07-14 09:52 | PCOTNOTE ---
Attempted to see pt for occupational therapy tx this AM. However, pt refused to participate in therapy despite education on purpose and benefits of therapy, with pt stating I am more worried about getting my stuff together...I was made some promises that I was discharging today. RN was present during discussion and states that she is not aware of any d/c for pt at this time. Will continue per poc duration/frequency tomorrow.
[2021-07-14 11:32] LABS: Glucose Point of Care 246 mg/dl (65-105)
[2021-07-14 13:07] LABS: Sodium 126 mmol/L (137-145)
--- NOTE | 2021-07-14 13:07 | PCPTNOTE ---
Attempted to see pt- pt refused stating no not today, I'm going home
--- NOTE | 2021-07-14 13:41 | PM.IMPN ---
Progress Note: A&P Assessment and Plan (1) Septic shock: Code(s): A41.9 - Sepsis, unspecified organism; R65.21 - Severe sepsis with septic shock Status: Acute Assessment and Plan: Resolved. Septic shock secondary to UTI and pneumonia. Levophed was discontinued and BP remaining stable. Afebrile. Leukocytosis resolved. Started with broad spectrum Zosyn and vancomycin and was transitioned to Levaquin for coverage of UTI and concurrent pneumonia. Will plan to complete 10 days of Levaquin (day #9 today) Urine culture with growth of Pseudomonas sensitive to Levaquin Blood cultures negative (2) Urinary tract infection with hematuria: Qualifiers: Urinary tract infection type: site unspecified Qualified Code(s): N39.0 - Urinary tract infection, site not specified; R31.9 - Hematuria, unspecified Code(s): N39.0 - Urinary tract infection, site not specified; R31.9 - Hematuria, unspecified Status: Acute Assessment and Plan: See above. Riggins was removed and patient is voiding. He is incontinent of urine and wearing depends. (3) Pneumonia: Qualifiers: Laterality: right Lung location: upper lobe of lung Pneumonia type: due to unspecified organism Qualified Code(s): J18.9 - Pneumonia, unspecified organism Code(s): J18.9 - Pneumonia, unspecified organism Status: Acute Assessment and Plan: He tested positive for COVID-19 on 06/20 as an outpatient and again 06/27 at [place]. Hospitalized from 06/27-06/30 but did not require COVID specific therapy as he had no oxygen requirements. He now requires supplemental oxygen. Has needed up to 5 L. He is now on 2 L, and maintaining adequate O2 sats. Continue to wean as tolerated with goal saturation 92% or above Completed 10 days of dexamethasone today Not a candidate for remdesivir as he was outside of the window Continue Levaquin as above for secondary bacterial pneumonia Supportive care to include bronchodilators, expectorants, antipyretics Repeat CXR today shows stable opacities Isolation precautions have been discontinued (4) ROBERTO (acute kidney injury): Code(s): N17.9 - Acute kidney failure, unspecified Status: Resolved Assessment and Plan: Secondary to septic shock. Resolved with fluid administration. Creatinine is 0.5 today (5) COVID-19 virus infection: Code(s): U07.1 - COVID-19 Status: Acute Assessment and Plan: Please see above (6) Diabetes mellitus: Code(s): E11.9 - Type 2 diabetes mellitus without complications Status: Acute Assessment and Plan: A1c is 7.5. Blood sugars have been reasonably controlled. Continue Accu-Cheks, sliding scale insulin, hypoglycemic protocol Continue Lantus 50 units q.h.s. Monitor blood sugars and adjust medications as needed (7) Hypoalbuminemia: Code(s): E88.09 - Other disorders of plasma-protein metabolism, not elsewhere classified Status: Acute Assessment and Plan: Resolved. Etiology for this is not clear. He received IV albumin and albumin levels have normalized (8) Hypertension: Code(s): I10 - Essential (primary) hypertension Status: Chronic Assessment and Plan: Blood pressure has been well controlled. Last BP 113/66 Continue home lisinopril. Amlodipine was added, but he likely does not require a 2nd antihypertensive agent, therefore has been discontinue. Will monitor blood pressure trends with home dose lisinopril monotherapy. Adjust as needed (9) Hyponatremia: Code(s): E87.1 - Hypo-osmolality and hyponatremia Status: Acute Assessment and Plan: Sodium down to 127 today. Noted that he did have issues with hyponatremia at his last admission 2 weeks ago which improved with fluid restriction. Fluid restriction implemented, though sodium levels have not improved. He may have SIADH. This could be related to chronic zypr
[2021-07-14 15:17] VITALS: BP 111/61; PULSE 87; RESP 16; TEMP 36.4; O2SAT 99
[2021-07-14 16:40] LABS: Glucose Point of Care 314 mg/dl (65-105)
[2021-07-14 16:58] LABS: Creatinine Urine 37.8 mg/dL
[2021-07-14 17:00] LABS: Sodium Urine Random 96 meq/L
[2021-07-14] MEDS: INSULIN GLARGINE (*BKC) 100 UNITS/ML 50 UNITS SUB-Q (20:28)
[2021-07-14 20:41] LABS: Glucose Point of Care 268 mg/dl (65-105)
[2021-07-14 21:49] LABS: Sodium 128 mmol/L (137-145)
[2021-07-14 22:00] VITALS: BP 106/63; PULSE 90; RESP 18; TEMP 36.6; O2SAT 98
[2021-07-15 05:20] LABS: Glucose Point of Care 197 mg/dl (65-105)
[2021-07-15 05:43] VITALS: BP 114/74; PULSE 69; RESP 18; TEMP 36.7; O2SAT 97
[2021-07-15 07:28] LABS: Hematocrit 37.7 % (42.0-52.0); Hemoglobin 12.8 g/dL (14.0-18.0); Mean Corpuscular Hemoglobin 28.5 pg (26-34); Mean Platelet Volume 9.5 fl (7.4-10.4); Platelet Count Result 367 k/mm3 (150-375); Red Blood Count 4.49 M/mm3 (4.6-6.20); Red Cell Distribution Width 14.1 % (11.5-14.5); White Blood Count 9.1 K/mm3 (4.5-10.0)
[2021-07-15 07:39] LABS: Anion Gap 10 mmol/L (8-16); Blood Urea Nitrogen 22 mg/dL (9-20); Calcium 8.9 mg/dL (8.4-10.2); Carbon Dioxide 23 mmol/L (22-30); Chloride 96 mmol/L (98-107); Estimated CRCL calculation 126 ml/min; Estimated Glomerular Filt Rate > 60; Glucose 202 mg/dL (65-110); Sodium 129 mmol/L (137-145)
[2021-07-15 08:00] VITALS: O2SAT 97
[2021-07-15 08:24] LABS: Glucose Point of Care 181 mg/dl (65-105)
--- NOTE | 2021-07-15 09:25 | PM.DS ---
DS: Admitting Diagnosis Discharge Date 07/15/2021 Admitting Diagnosis Septic shock DS: Discharge Diagnosis Discharge Diagnosis (1) Septic shock: Code(s): A41.9 - Sepsis, unspecified organism; R65.21 - Severe sepsis with septic shock Status: Acute Assessment and Plan: Resolved. Septic shock secondary to UTI and pneumonia. Levophed was discontinued and BP remained stable. Afebrile. Leukocytosis resolved. He received broad-spectrum Zosyn and vancomycin and was transition to Levaquin for coverage of UTI in concurrent pneumonia. He completed 10 days of IV Levaquin. Urine culture with growth of Pseudomonas sensitive to Levaquin. Blood cultures negative. (2) Urinary tract infection with hematuria: Qualifiers: Urinary tract infection type: site unspecified Qualified Code(s): N39.0 - Urinary tract infection, site not specified; R31.9 - Hematuria, unspecified Code(s): N39.0 - Urinary tract infection, site not specified; R31.9 - Hematuria, unspecified Status: Acute Assessment and Plan: See above. Riggins was removed and patient was able to void without difficulty. He is incontinent of urine and wearing depends. (3) Pneumonia: Qualifiers: Laterality: right Lung location: upper lobe of lung Pneumonia type: due to unspecified organism Qualified Code(s): J18.9 - Pneumonia, unspecified organism Code(s): J18.9 - Pneumonia, unspecified organism Status: Acute Assessment and Plan: He tested positive for COVID-19 on 06/20 as an outpatient and again 06/27 at this facility. Hospitalized from 06/27-06/30 but did not require COVID specific therapy at that time as he had no oxygen requirements. During this hospitalization, he did have oxygen requirements, up to 5 L. he was able to be slowly weaned to room air and was maintaining adequate O2 sats on room air. O2 sats will be monitored at facility and oxygen titrated as needed to maintain O2 sats 92% or above. He completed 10 days of dexamethasone. He was not a candidate for remdesivir as he was outside of the window. He was treated with IV Levaquin x10 days as above for secondary bacterial pneumonia. Supportive care provided including bronchodilators, expectorants, antipyretics. Repeat CXR on 07/13/2021 showed stable airspace opacities. (4) ROBERTO (acute kidney injury): Code(s): N17.9 - Acute kidney failure, unspecified Status: Resolved Assessment and Plan: Secondary to septic shock. Resolved with fluid administration. Creatinine was stable at 0.5 subsequently (5) COVID-19 virus infection: Code(s): U07.1 - COVID-19 Status: Acute Assessment and Plan: Please see above. He did complete COVID vaccination November 2020 (6) Diabetes mellitus: Code(s): E11.9 - Type 2 diabetes mellitus without complications Status: Acute Assessment and Plan: A1c is 7.5. Blood sugars were a 1st elevated due to steroids but improved with insulin regimen. He received 50 units q.h.s. with sliding scale insulin and was monitored with regular Accu-Cheks. He will continue his home regimen on discharge consisting of Lantus 30 units qHS and 8 units Humalog scheduled with meals. Monitor blood sugars and implement hypoglycemia protocol at nursing facility (7) Hypoalbuminemia: Code(s): E88.09 - Other disorders of plasma-protein metabolism, not elsewhere classified Status: Acute Assessment and Plan: Resolved. He received IV albumin and albumin levels normalized (8) Hypertension: Code(s): I10 - Essential (primary) hypertension Status: Chronic Assessment and Plan: Blood pressures were well controlled. Continue home lisinopril. Monitor BP at facility and record for review by PCP (9) Hyponatremia: Code(s): E87.1 - Hypo-osmolality and hyponatremia Status: Acute Assessment and Plan: Sodium declined down to 126. Noted cherelle
[2021-07-15] MEDS: POTASSIUM CHLORIDE 20 MEQ PACKET (FOR LIQUID) 40 MEQ PO ×2 (09:37→17:35)
[2021-07-15] MEDS: guaiFENesin 12 HR 600 MG TABCR PO (09:37)
[2021-07-15] MEDS: TAMSULOSIN HCL 0.4 MG CAPSULE PO (09:37)
[2021-07-15] MEDS: lisinopriL 5 MG TABLET PO (09:37)
[2021-07-15] MEDS: ENOXAPARIN 40 MG/0.4 ML SYRINGE SUB-Q (09:37)
[2021-07-15] MEDS: SODIUM CHLORIDE 500 MG TABLET PO ×2 (09:37→17:32)
[2021-07-15 11:53] LABS: Glucose Point of Care 211 mg/dl (65-105)
[2021-07-15 14:00] VITALS: PULSE 83; RESP 20; TEMP 36; O2SAT 98
[2021-07-15 16:46] LABS: Glucose Point of Care 206 mg/dl (65-105)
[2021-07-15] MEDS: INSULIN ASPART (*BKC) 100 UNITS/ML SUB-Q (17:32)
== END 2021-07-15 19:00 | DRG 698 ==
LOC: ANHED 09:29 → ANHICU 12:56 → ANH3MEDSUR 07-09 19:53 → ANHICU 07-17 10:18
PROVIDERS: Family Medicine; Internal Medicine; Nurse Practitioner; Admitting Provider Internal Medicine; Emergency Provider Emergency Medicine; PCP Internal Medicine; Visit Provider Physician Assistant
DX: T83.511A Infection and inflammatory reaction due to indwelling urethral catheter, initial encounter (principal); A41.9 Sepsis, unspecified organism; R65.21 Severe sepsis with septic shock; U07.1 COVID-19; J18.9 Pneumonia, unspecified organism; J15.9 Unspecified bacterial pneumonia; E87.1 Hypo-osmolality and hyponatremia; N17.9 Acute kidney failure, unspecified; N39.0 Urinary tract infection, site not specified; B96.5 Pseudomonas (aeruginosa) (mallei) (pseudomallei) as the cause of diseases classified elsewhere; R33.9 Retention of urine, unspecified; E83.51 Hypocalcemia; I10 Essential (primary) hypertension; E88.09 Other disorders of plasma-protein metabolism, not elsewhere classified; E11.9 Type 2 diabetes mellitus without complications; F20.9 Schizophrenia, unspecified; D72.829 Elevated white blood cell count, unspecified; R32 Unspecified urinary incontinence; D75.839 Thrombocytosis, unspecified; H54.8 Legal blindness, as defined in USA; R31.9 Hematuria, unspecified; R16.1 Splenomegaly, not elsewhere classified
CPT/HCPCS: 36415; 36556; 71045; 74177; 80048; 80053; 80202; 81001; 82040; 82570; 82728; 82948; 83605; 83615; 83690; 83735; 84100; 84132; 84295; 84300; 85025; 85027; 85610; 85730; 86140; 87040; 87077; 87086; 87088; 87186; 93005; 96361; 96365; 97110; 97161; 97165; 97530; 97535; 99285; A9270; C1751; J0131; J0610; J1100; J1650; J1815; J1956; J2543; J3370; J3475; J3480; J7030; J7040; J7050; P9047; Q9967